=== PATIENT | female | born 1935 | race Caucasian/White ===

== ENCOUNTER 2021-04-17 10:46 | Emergency (ER) | payer MEDICARE, OTHER ==
[~2021-04-17] VITALS: Ht 167.6 cm; Wt 74.8 kg
[2021-04-17] MEDS ORDERED: HYDROcodone-ACET 10/325MG TAB PO ONE (12:30)
[2021-04-17 13:10] VITALS: BP 160/85
== END 2021-04-17 13:16 | disposition home or self-care (01) ==
LOC: ER 10:46
DX: S09.90XA Unspecified injury of head, initial encounter (principal); E11.9 Type 2 diabetes mellitus without complications; I10 Essential (primary) hypertension; E78.5 Hyperlipidemia, unspecified; Z90.49 Acquired absence of other specified parts of digestive tract; Z90.710 Acquired absence of both cervix and uterus; W01.198A Fall on same level from slipping, tripping and stumbling with subsequent striking against other object, initial encounter; Y93.89 Activity, other specified; Y92.89 Other specified places as the place of occurrence of the external cause; Y99.8 Other external cause status
CPT/HCPCS: 70450; 72125

== ENCOUNTER 2021-07-28 16:55 | Inpatient (IN) | payer MEDICARE, OTHER ==
[~2021-07-28] VITALS: Ht 167.6 cm; Wt 84.5 kg
[2021-07-28] MEDS ORDERED: DEXTROSE (50%) 50ML SYRG IV ONE (17:00)
[2021-07-28] MEDS ORDERED: cloNIDine HCL 0.1 MG TAB PO ONE (17:00)
[2021-07-28 17:55] LABS: Basophils # (auto) 0 10 ^3/uL (0-0.2); Basophils % (auto) 0.3 % (0.0-2.0); Eosinophils # (auto) 0 10 ^3/uL (0-0.8); Eosinophils % (auto) 0.2 % (0.0-7.0); Hemoglobin 11.7 g/dL (12.2-16.2); Lymphocytes # (auto) 0.8 10 ^3/uL (0.4-5.4); Lymphocytes % (auto) 15.4 % (10.0-50.0); Mean Corpuscular Hgb Conc. 33.4 g/dL (32.0-36.0); Mean Corpuscular Volume 98.7 fL (80.0-100.0); Monocytes # (auto) 0.2 10 ^3/uL (0-1.3); Monocytes % (auto) 3.9 % (0.0-12.0); Neutrophils % (auto) 80.2 % (37.0-80.0); Nucleated Red Blood Cells % 0.1 %; Red Blood Cells 3.55 10^6/uL (4.0-5.20); Red Cell Distribution Width 13.3 % (11.8-14.3)
[2021-07-28 18:11] LABS: Albumin 3.1 g/dL (3.4-5.0); Calcium 8.7 mg/dL (8.5-10.1); Potassium 4.2 mmol/L (3.5-5.1)
[2021-07-28 18:17] LABS: BUN/Creatinine Ratio 29.6; Bilirubin, Total 0.2 mg/dL (0.2-1.0); Total Protein 7.2 g/dL (6.4-8.2)
[2021-07-28] MEDS ORDERED: cefTRIAXone 1GM/50ML D5W 50 ML IV ONE (19:15)
[2021-07-28] MEDS ORDERED: AZITHROMYCIN 500MG/ 250ML 250 ML IV ONE (19:15)
[2021-07-28 20:52] LABS: Urine Bacteria NONE SEEN /hpf (None Seen); Urine Blood 1+ /uL (Negative); Urine Hyaline Cast FEW /lpf (0 - 2); Urine Specific Gravity 1.011 (1.001-1.035); Urine WBC 1 /hpf (0 - 5)
[2021-07-28] MEDS ORDERED: DexAMETHasone SOD PHOS 10MG/1ML VIAL INJ IV ONE (21:00)
[2021-07-28] MEDS ORDERED: ENOXAPARIN SOD 100 MG/1 ML SYRINGE SC ONE (21:15)
[2021-07-28] MEDS ORDERED: ALBUTEROL SULF 2.5 MG/0.5ML(0.5%) NEB SOLN NEB PRN (21:30)
[2021-07-28] MEDS ORDERED: NITROGLYCERIN 0.4 MG SL TAB SL PRN (21:30)
[2021-07-28] MEDS ORDERED: ACETAMINOPHEN 325 MG TAB PO PRN (21:30)
[2021-07-28] MEDS ORDERED: cloNIDine HCL 0.1 MG TAB PO PRN (21:30)
[2021-07-28] MEDS ORDERED: TEMAZEPAM 15 MG CAP PO PRN (21:30)
[2021-07-28] MEDS ORDERED: ONDANSETRON HCL 4 MG/2 ML VIAL IV PRN (21:30)
[2021-07-28] MEDS ORDERED: MORPHINE SULFATE INJECTION 2 MG/ML SYRG IV PRN (21:30)
[2021-07-28] MEDS ORDERED: DEXTROSE (50%) 50ML SYRG IV PRN (21:30)
[2021-07-28 21:49] LABS: INR 1.01 (0.9-1.15); Partial Thromboplastin Time 28.5 sec (23.6-33.0)
[2021-07-28] MEDS ORDERED: DONEPEZIL HYDROCHLORIDE 5 MG TAB PO SCH (22:00)
[2021-07-28] MEDS ORDERED: ATORVASTATIN 20 MG TAB PO SCH (22:00)
[2021-07-28] MEDS ORDERED: ALBUTEROL SULF HFA 90MCG INH 200DOSE IN PRN (22:15)
[2021-07-28] MEDS: ACCU-CHEK COMFORT CURVE STRIP VI SCH (22:32)
[2021-07-28] MEDS: InsuLIN REG 1unit/0.01ml Soln (100units/ml) SC SCH (22:35)
[2021-07-28 23:06] LABS: CRP High Sensitivity 9.59 mg/dL (< 0.3)
[2021-07-29 00:04] LABS: Lactic Acid w/Reflex 3.6 mmol/L (0.4-2.0)
[2021-07-29 04:50] LABS: Basophils # (auto) 0.1 10 ^3/uL (0-0.2); Basophils % (auto) 0.4 % (0.0-2.0); Eosinophils # (auto) 0 10 ^3/uL (0-0.8); Hematocrit 33.8 % (36.0-46.0); Lymphocytes # (auto) 0.5 10 ^3/uL (0.4-5.4); Lymphocytes % (auto) 4.2 % (10.0-50.0); Mean Corpuscular Hemoglobin 33.1 pg (28.0-32.0); Mean Corpuscular Hgb Conc. 32.7 g/dL (32.0-36.0); Mean Corpuscular Volume 101.3 fL (80.0-100.0); Monocytes # (auto) 0.1 10 ^3/uL (0-1.3); Monocytes % (auto) 1.1 % (0.0-12.0); Neutrophils # (auto) 11.3 10 ^3/uL (1.6-8.6); Neutrophils % (auto) 94.3 % (37.0-80.0); Red Blood Cells 3.33 10^6/uL (4.0-5.20); Red Cell Distribution Width 13.8 % (11.8-14.3)
[2021-07-29 05:28] LABS: Albumin 2.4 g/dL (3.4-5.0); Calcium 8.2 mg/dL (8.5-10.1); Potassium 4.5 mmol/L (3.5-5.1)
[2021-07-29 05:31] LABS: BUN/Creatinine Ratio 27.7; Bilirubin, Total 0.3 mg/dL (0.2-1.0); Total Protein 6.4 g/dL (6.4-8.2)
[2021-07-29] MEDS: ACCU-CHEK COMFORT CURVE STRIP VI SCH ×4 (07:10→22:24)
[2021-07-29] MEDS: InsuLIN REG 1unit/0.01ml Soln (100units/ml) SC SCH ×4 (07:26→22:44)
[2021-07-29] MEDS ORDERED: FUROSEMIDE 20 MG/2 ML VIAL IV ONE (07:45)
[2021-07-29] MEDS: cefTRIAXone 1GM/50ML D5W 50 ML IV SCH (09:05)
[2021-07-29] MEDS ORDERED: ZINC SULFATE 220mg CAP or TAB PO SCH (10:00)
[2021-07-29] MEDS ORDERED: ENOXAPARIN SOD 30 MG/0.3 ML SYRINGE SC SCH (10:00)
[2021-07-29] MEDS ORDERED: HCTZ 25 MG TAB PO SCH (10:00)
[2021-07-29] MEDS ORDERED: ATENOLOL 50 MG TAB PO SCH (10:00)
[2021-07-29] MEDS ORDERED: FUROSEMIDE 40 MG TAB PO SCH (10:00)
[2021-07-29] MEDS ORDERED: ASPirin 81 mg TAB PO SCH (10:00)
[2021-07-29] MEDS ORDERED: CHOLECALCIFEROL (VITD3) 2,000 UNIT CAP/TAB PO SCH (10:00)
[2021-07-29] MEDS ORDERED: ASCORBIC ACID 1,000 MG TAB PO SCH (10:00)
[2021-07-29] MEDS ORDERED: LISINOPRIL 5 MG TAB PO SCH (10:00)
[2021-07-29] MEDS ORDERED: PANTOPRAZOLE 40 MG TAB PO SCH (10:00)
[2021-07-29] MEDS ORDERED: MIDAZOLAM HCL 5 MG/ML-1ML VIAL ONE (10:38)
[2021-07-29] MEDS ORDERED: SUCCINYLCHOLINE CHLORIDE 20 MG/ML 10ML VIAL IV ONE (10:38)
[2021-07-29] MEDS ORDERED: MIDAZOLAM DRIP 50 mg/50mL 50 ML IV ONE (10:38)
[2021-07-29] MEDS ORDERED: NOREPINEPHRINE 8 MG/250ML KIT 250 ML IV ONE (10:38)
[2021-07-29] MEDS ORDERED: MIDAZOLAM HCL 5 MG/ML-1ML VIAL IV ONE (10:45)
[2021-07-29] MEDS ORDERED: ETOMIDATE (2MG/ML) 20ML VIAL IV ONE (10:53)
[2021-07-29] MEDS ORDERED: MIDAZOLAM DRIP 50 mg/50mL 50 ML IV SCH (10:58)
[2021-07-29] MEDS ORDERED: fentaNYL CITRATE 100 MCG/2 ML VL IV ONE (11:02)
[2021-07-29] MEDS: MIDAZOLAM DRIP 50 mg/50mL 50 ML IV SCH ×3 (11:09→17:45)
[2021-07-29 11:14] VITALS: BP 85/42
[2021-07-29] MEDS: fentaNYL Drip 2500mCg/250mlNS 250 ML IV SCH (11:15)
[2021-07-29] MEDS ORDERED: ACETAMINOPHEN 650 mg PER 20.3 mL UD GT PRN (11:30)
[2021-07-29] MEDS ORDERED: ACETAMINOPHEN 650 mg PER 20.3 mL UD NG PRN (11:30)
[2021-07-29] MEDS: DexAMETHasone SOD PHOS 10MG/1ML VIAL INJ IV SCH (11:31)
[2021-07-29] MEDS ORDERED: ATORVASTATIN 20 MG TAB NG SCH (11:31)
[2021-07-29] MEDS: AZITHROMYCIN 500MG/ 250ML 250 ML IV SCH (11:31)
[2021-07-29] MEDS: ATENOLOL 50 MG TAB NG SCH (11:33)
[2021-07-29] MEDS ORDERED: DONEPEZIL HYDROCHLORIDE 5 MG TAB NG SCH (11:33)
[2021-07-29] MEDS: NOREPINEPHRINE 8 MG/250ML KIT 250 ML IV SCH (11:35)
[2021-07-29] MEDS: LISINOPRIL 5 MG TAB NG SCH (11:36)
[2021-07-29] MEDS ORDERED: cloNIDine HCL 0.1 MG TAB NG PRN (11:45)
[2021-07-29] MEDS ORDERED: TEMAZEPAM 15 MG CAP NG PRN (11:45)
[2021-07-29] MEDS: ASCORBIC ACID 1,000 MG TAB NG SCH (13:10)
[2021-07-29] MEDS: FUROSEMIDE 40 MG TAB NG SCH (13:10)
[2021-07-29] MEDS: OMEPRAZOLE 20MG/10ML ORAL SUSP NG SCH (13:10)
[2021-07-29] MEDS: CHOLECALCIFEROL (VITD3) 1,000UNIT=25mCg TAB NG SCH (13:10)
[2021-07-29] MEDS: HCTZ 25 MG TAB NG SCH (13:10)
[2021-07-29] MEDS: ASPirin 81 mg TAB NG SCH (13:10)
[2021-07-29] MEDS: ZINC SULFATE 220mg CAP or TAB NG SCH (13:10)
[2021-07-29 14:26] VITALS: BP 100/59
[2021-07-29 17:45] VITALS: BP 106/57
[2021-07-29 21:34] VITALS: BP 105/59
[2021-07-29] MEDS: DONEPEZIL HYDROCHLORIDE 5 MG TAB NG SCH (22:45)
[2021-07-29] MEDS: ATORVASTATIN 20 MG TAB NG SCH (22:45)
[2021-07-30 01:11] VITALS: BP 122/59
[2021-07-30 06:00] VITALS: BP 130/72
[2021-07-30] MEDS ORDERED: ALBUTEROL SULF 2.5 MG/0.5ML(0.5%) NEB SOLN NEB PRN (06:00)
[2021-07-30 06:56] LABS: Basophils # (auto) 0 10 ^3/uL (0-0.2); Basophils % (auto) 0.2 % (0.0-2.0); Eosinophils # (auto) 0 10 ^3/uL (0-0.8); Hematocrit 35.3 % (36.0-46.0); Lymphocytes # (auto) 1.2 10 ^3/uL (0.4-5.4); Lymphocytes % (auto) 8.6 % (10.0-50.0); Monocytes # (auto) 0.9 10 ^3/uL (0-1.3); Monocytes % (auto) 6.1 % (0.0-12.0); Neutrophils # (auto) 12.3 10 ^3/uL (1.6-8.6); Neutrophils % (auto) 85.1 % (37.0-80.0); Red Blood Cells 3.63 10^6/uL (4.0-5.20); Red Cell Distribution Width 13.3 % (11.8-14.3); White Blood Cell 14.4 10^3/uL (4.4-10.8)
[2021-07-30 06:59] LABS: Potassium 5.4 mmol/L (3.5-5.1)
[2021-07-30 07:11] LABS: Albumin 2.1 g/dL (3.4-5.0); BUN/Creatinine Ratio 30.6; Bilirubin, Total 0.2 mg/dL (0.2-1.0); Calcium 8.6 mg/dL (8.5-10.1); Total Protein 6.4 g/dL (6.4-8.2)
[2021-07-30] MEDS: ACCU-CHEK COMFORT CURVE STRIP VI SCH ×4 (07:48→22:39)
[2021-07-30] MEDS: InsuLIN REG 1unit/0.01ml Soln (100units/ml) SC SCH ×4 (07:48→22:41)
[2021-07-30] MEDS: cefTRIAXone 1GM/50ML D5W 50 ML IV SCH (09:11)
[2021-07-30] MEDS: LISINOPRIL 5 MG TAB NG SCH (10:00)
[2021-07-30] MEDS: ATENOLOL 50 MG TAB NG SCH (10:00)
[2021-07-30 10:10] VITALS: BP 106/65
[2021-07-30] MEDS: ZINC SULFATE 220mg CAP or TAB NG SCH (10:28)
[2021-07-30] MEDS: AZITHROMYCIN 500MG/ 250ML 250 ML IV SCH (10:28)
[2021-07-30] MEDS: ASPirin 81 mg TAB NG SCH (10:28)
[2021-07-30] MEDS: DexAMETHasone SOD PHOS 10MG/1ML VIAL INJ IV SCH (10:28)
[2021-07-30] MEDS: ASCORBIC ACID 1,000 MG TAB NG SCH (10:29)
[2021-07-30] MEDS: OMEPRAZOLE 20MG/10ML ORAL SUSP NG SCH (10:29)
[2021-07-30] MEDS: CHOLECALCIFEROL (VITD3) 1,000UNIT=25mCg TAB NG SCH (10:29)
[2021-07-30] MEDS: ENOXAPARIN SOD 40 MG/0.4 ML SYRINGE SC SCH (10:30)
[2021-07-30] MEDS: FUROSEMIDE 40 MG TAB NG SCH (10:31)
[2021-07-30] MEDS: HCTZ 25 MG TAB NG SCH (10:31)
[2021-07-30] MEDS: MIDAZOLAM DRIP 50 mg/50mL 50 ML IV SCH ×2 (11:00→16:45)
[2021-07-30] MEDS: fentaNYL Drip 2500mCg/250mlNS 250 ML IV SCH (11:10)
[2021-07-30] MEDS: NOREPINEPHRINE 8 MG/250ML KIT 250 ML IV SCH (11:15)
[2021-07-30] MEDS ORDERED: REMDESIVIR PER PHARMACY 0 ML IV SCH (12:15)
[2021-07-30 14:00] VITALS: BP 106/65
[2021-07-30 18:21] VITALS: BP 105/99
[2021-07-30 22:23] VITALS: BP 103/64
[2021-07-30] MEDS: DONEPEZIL HYDROCHLORIDE 5 MG TAB NG SCH (22:39)
[2021-07-30] MEDS: ATORVASTATIN 20 MG TAB NG SCH (22:39)
[2021-07-30] MEDS ORDERED: DEXTROSE (50%) 50ML SYRG IV ONE (23:00)
[2021-07-30] MEDS ORDERED: SODIUM BICARBONATE 8.4% INJ 50ML SYRINGE IV ONE (23:00)
[2021-07-30] MEDS ORDERED: InsuLIN REG 1unit/0.01ml Soln (100units/ml) IV ONE (23:00)
[2021-07-31] VITALS (8 sets, daily range): BP systolic 94–130; BP diastolic 21–68
[2021-07-31] MEDS: MIDAZOLAM DRIP 50 mg/50mL 50 ML IV SCH (03:33)
[2021-07-31] MEDS: fentaNYL Drip 2500mCg/250mlNS 250 ML IV SCH ×2 (05:45→12:48)
[2021-07-31] MEDS: NOREPINEPHRINE 8 MG/250ML KIT 250 ML IV SCH (05:46)
[2021-07-31] MEDS: ACCU-CHEK COMFORT CURVE STRIP VI SCH ×4 (06:30→23:15)
[2021-07-31] MEDS: InsuLIN REG 1unit/0.01ml Soln (100units/ml) SC SCH ×4 (06:30→23:15)
[2021-07-31 08:26] LABS: Basophils # (auto) 0 10 ^3/uL (0-0.2); Basophils % (auto) 0.1 % (0.0-2.0); Eosinophils # (auto) 0 10 ^3/uL (0-0.8); Eosinophils % (auto) 0.1 % (0.0-7.0); Hematocrit 36.4 % (36.0-46.0); Hemoglobin 12.1 g/dL (12.2-16.2); Lymphocytes # (auto) 0.7 10 ^3/uL (0.4-5.4); Lymphocytes % (auto) 6.4 % (10.0-50.0); Mean Corpuscular Hemoglobin 32.6 pg (28.0-32.0); Mean Corpuscular Hgb Conc. 33.2 g/dL (32.0-36.0); Mean Corpuscular Volume 98.2 fL (80.0-100.0); Monocytes # (auto) 0.8 10 ^3/uL (0-1.3); Monocytes % (auto) 6.5 % (0.0-12.0); Neutrophils % (auto) 86.9 % (37.0-80.0); Red Blood Cells 3.71 10^6/uL (4.0-5.20); Red Cell Distribution Width 13.4 % (11.8-14.3); White Blood Cell 11.5 10^3/uL (4.4-10.8)
[2021-07-31 09:00] LABS: Calcium 8.7 mg/dL (8.5-10.1); Potassium 4.5 mmol/L (3.5-5.1)
[2021-07-31 09:05] LABS: BUN/Creatinine Ratio 38.1; Bilirubin, Total 0.2 mg/dL (0.2-1.0)
[2021-07-31] MEDS: SODIUM BICARBONATE 50ML VIAL 150 ML in D5W 5% 1,000 ML IV SCH ×2 (09:09→20:50)
[2021-07-31] MEDS: DexAMETHasone SOD PHOS 10MG/1ML VIAL INJ IV SCH (09:10)
[2021-07-31] MEDS: ASPirin 81 mg TAB NG SCH (09:10)
[2021-07-31] MEDS: cefTRIAXone 1GM/50ML D5W 50 ML IV SCH (09:10)
[2021-07-31] MEDS: ZINC SULFATE 220mg CAP or TAB NG SCH (09:10)
[2021-07-31] MEDS: ENOXAPARIN SOD 40 MG/0.4 ML SYRINGE SC SCH (09:11)
[2021-07-31] MEDS: CHOLECALCIFEROL (VITD3) 1,000UNIT=25mCg TAB NG SCH (09:11)
[2021-07-31] MEDS: ASCORBIC ACID 1,000 MG TAB NG SCH (09:11)
[2021-07-31] MEDS: HCTZ 25 MG TAB NG SCH (10:00)
[2021-07-31] MEDS: ATENOLOL 50 MG TAB NG SCH (10:00)
[2021-07-31] MEDS: OMEPRAZOLE 20MG/10ML ORAL SUSP NG SCH (11:00)
[2021-07-31] MEDS: AZITHROMYCIN 500MG/ 250ML 250 ML IV SCH (11:00)
[2021-07-31] MEDS: DONEPEZIL HYDROCHLORIDE 5 MG TAB NG SCH (23:10)
[2021-07-31] MEDS: ATORVASTATIN 20 MG TAB NG SCH (23:11)
[2021-08-01] VITALS (7 sets, daily range): BP systolic 99–146; BP diastolic 32–71
[2021-08-01] MEDS: SODIUM BICARBONATE 50ML VIAL 150 ML in D5W 5% 1,000 ML IV SCH ×2 (05:55→08:19)
[2021-08-01] MEDS: InsuLIN REG 1unit/0.01ml Soln (100units/ml) SC SCH ×4 (05:56→20:23)
[2021-08-01] MEDS: ACCU-CHEK COMFORT CURVE STRIP VI SCH ×4 (05:59→20:17)
[2021-08-01 07:36] LABS: Basophils # (auto) 0 10 ^3/uL (0-0.2); Basophils % (auto) 0.2 % (0.0-2.0); Eosinophils # (auto) 0 10 ^3/uL (0-0.8); Hematocrit 32.1 % (36.0-46.0); Hemoglobin 10.8 g/dL (12.2-16.2); Lymphocytes # (auto) 0.5 10 ^3/uL (0.4-5.4); Lymphocytes % (auto) 6.4 % (10.0-50.0); Mean Corpuscular Hemoglobin 32.7 pg (28.0-32.0); Mean Corpuscular Hgb Conc. 33.5 g/dL (32.0-36.0); Mean Corpuscular Volume 97.4 fL (80.0-100.0); Monocytes # (auto) 0.6 10 ^3/uL (0-1.3); Monocytes % (auto) 7.7 % (0.0-12.0); Neutrophils # (auto) 6.3 10 ^3/uL (1.6-8.6); Neutrophils % (auto) 85.7 % (37.0-80.0); Nucleated Red Blood Cells % 0.1 %; Red Blood Cells 3.29 10^6/uL (4.0-5.20); Red Cell Distribution Width 13.4 % (11.8-14.3); White Blood Cell 7.3 10^3/uL (4.4-10.8)
[2021-08-01 07:44] LABS: Potassium 3.9 mmol/L (3.5-5.1)
[2021-08-01 07:50] LABS: Albumin 1.8 g/dL (3.4-5.0); BUN/Creatinine Ratio 42.8; Bilirubin, Total 0.2 mg/dL (0.2-1.0); Calcium 8.6 mg/dL (8.5-10.1); Total Protein 5.4 g/dL (6.4-8.2)
[2021-08-01] MEDS: cefTRIAXone 1GM/50ML D5W 50 ML IV SCH (09:25)
[2021-08-01] MEDS: HCTZ 25 MG TAB NG SCH (10:00)
[2021-08-01] MEDS: ATENOLOL 50 MG TAB NG SCH (10:00)
[2021-08-01] MEDS: DexAMETHasone SOD PHOS 10MG/1ML VIAL INJ IV SCH (10:19)
[2021-08-01] MEDS: ASPirin 81 mg TAB NG SCH (10:19)
[2021-08-01] MEDS: AZITHROMYCIN 500MG/ 250ML 250 ML IV SCH (10:19)
[2021-08-01] MEDS: ZINC SULFATE 220mg CAP or TAB NG SCH (10:19)
[2021-08-01] MEDS: ASCORBIC ACID 1,000 MG TAB NG SCH (10:20)
[2021-08-01] MEDS: CHOLECALCIFEROL (VITD3) 1,000UNIT=25mCg TAB NG SCH (10:20)
[2021-08-01] MEDS: ENOXAPARIN SOD 40 MG/0.4 ML SYRINGE SC SCH (10:21)
[2021-08-01] MEDS: OMEPRAZOLE 20MG/10ML ORAL SUSP NG SCH (10:25)
[2021-08-01] MEDS: MIDAZOLAM DRIP 50 mg/50mL 50 ML IV SCH (10:45)
[2021-08-01] MEDS: NOREPINEPHRINE 8 MG/250ML KIT 250 ML IV SCH (11:15)
[2021-08-01] MEDS ORDERED: DEXTROSE (50%) 50ML SYRG IV PRN (12:15)
[2021-08-01 12:27] LABS: INR 1.21 (0.9-1.15)
[2021-08-01 12:38] LABS: Hematocrit 31.2 % (36.0-46.0); Hemoglobin 10.4 g/dL (12.2-16.2)
[2021-08-01] MEDS ORDERED: HEPARIN SODIUM (PORCINE) 5000 UNITS/ML 1ML VIAL IV ONE (14:15)
[2021-08-01] MEDS: SODIUM CHLORIDE 0.9% 1,000 ML IV SCH (14:45)
[2021-08-01] MEDS ORDERED: HEPARIN SODIUM (PORCINE) 5000 UNITS/ML 1ML VIAL ONE (15:16)
[2021-08-01] MEDS: HEPARIN DRIP/D5W 100UNITS/ML 250 ML IV SCH (15:29)
[2021-08-01 17:31] LABS: Hematocrit 32.2 % (36.0-46.0); Hemoglobin 10.8 g/dL (12.2-16.2)
[2021-08-01] MEDS: ATORVASTATIN 20 MG TAB NG SCH (21:45)
[2021-08-01] MEDS: DONEPEZIL HYDROCHLORIDE 5 MG TAB NG SCH (21:45)
[2021-08-01 23:16] LABS: INR 1.27 (0.9-1.15); Partial Thromboplastin Time 51.7 sec (23.6-33.0)
[2021-08-01 23:22] LABS: Hematocrit 31.9 % (36.0-46.0)
[2021-08-02] VITALS (19 sets, daily range): BP systolic 91–131; BP diastolic 48–89
[2021-08-02] MEDS: ACCU-CHEK COMFORT CURVE STRIP VI SCH ×6 (00:14→20:00)
[2021-08-02] MEDS: InsuLIN REG 1unit/0.01ml Soln (100units/ml) SC SCH ×6 (00:20→21:34)
[2021-08-02] MEDS: SODIUM CHLORIDE 0.9% 1,000 ML IV SCH ×2 (04:52→17:25)
[2021-08-02 06:25] LABS: Basophils # (auto) 0 10 ^3/uL (0-0.2); Basophils % (auto) 0.3 % (0.0-2.0); Eosinophils # (auto) 0 10 ^3/uL (0-0.8); Eosinophils % (auto) 0.1 % (0.0-7.0); Hematocrit 31.5 % (36.0-46.0); Hemoglobin 10.7 g/dL (12.2-16.2); Lymphocytes # (auto) 0.5 10 ^3/uL (0.4-5.4); Mean Corpuscular Hemoglobin 32.5 pg (28.0-32.0); Mean Corpuscular Volume 95.7 fL (80.0-100.0); Monocytes # (auto) 0.8 10 ^3/uL (0-1.3); Monocytes % (auto) 8.9 % (0.0-12.0); Neutrophils # (auto) 7.9 10 ^3/uL (1.6-8.6); Neutrophils % (auto) 85.7 % (37.0-80.0); Red Blood Cells 3.29 10^6/uL (4.0-5.20); Red Cell Distribution Width 13.3 % (11.8-14.3); White Blood Cell 9.2 10^3/uL (4.4-10.8)
[2021-08-02 06:34] LABS: Potassium 3.8 mmol/L (3.5-5.1)
[2021-08-02 06:43] LABS: Albumin 1.7 g/dL (3.4-5.0); BUN/Creatinine Ratio 48.8; Calcium 8.7 mg/dL (8.5-10.1)
[2021-08-02 06:46] LABS: Bilirubin, Total 0.2 mg/dL (0.2-1.0); Total Protein 5.1 g/dL (6.4-8.2)
[2021-08-02 07:51] LABS: INR 1.35 (0.9-1.15); Partial Thromboplastin Time 43.7 sec (23.6-33.0)
[2021-08-02] MEDS: cefTRIAXone 1GM/50ML D5W 50 ML IV SCH (09:38)
[2021-08-02] MEDS: DexAMETHasone SOD PHOS 10MG/1ML VIAL INJ IV SCH (09:47)
[2021-08-02] MEDS: ASPirin 81 mg TAB NG SCH (09:49)
[2021-08-02] MEDS: ZINC SULFATE 220mg CAP or TAB NG SCH (09:50)
[2021-08-02] MEDS: ASCORBIC ACID 1,000 MG TAB NG SCH (09:50)
[2021-08-02] MEDS: CHOLECALCIFEROL (VITD3) 1,000UNIT=25mCg TAB NG SCH (09:50)
[2021-08-02] MEDS: OMEPRAZOLE 20MG/10ML ORAL SUSP NG SCH (10:00)
[2021-08-02] MEDS: AZITHROMYCIN 500MG/ 250ML 250 ML IV SCH (10:24)
[2021-08-02] MEDS: MIDAZOLAM DRIP 50 mg/50mL 50 ML IV SCH (10:45)
[2021-08-02] MEDS: fentaNYL Drip 2500mCg/250mlNS 250 ML IV SCH (11:54)
[2021-08-02] MEDS: NOREPINEPHRINE 8 MG/250ML KIT 250 ML IV SCH (11:54)
[2021-08-02] MEDS: HEPARIN DRIP/D5W 100UNITS/ML 250 ML IV SCH (14:15)
[2021-08-02 14:26] LABS: INR 1.29 (0.9-1.15)
[2021-08-02 14:32] LABS: Partial Thromboplastin Time 73.7 sec (23.6-33.0)
[2021-08-02 20:46] LABS: INR 1.3 (0.9-1.15); Partial Thromboplastin Time 69.2 sec (23.6-33.0)
[2021-08-02] MEDS: ATORVASTATIN 20 MG TAB NG SCH (21:35)
[2021-08-02] MEDS: DONEPEZIL HYDROCHLORIDE 5 MG TAB NG SCH (21:40)
[2021-08-03] VITALS (20 sets, daily range): BP systolic 98–140; BP diastolic 48–82
[2021-08-03] MEDS: InsuLIN REG 1unit/0.01ml Soln (100units/ml) SC SCH ×6 (01:09→19:15)
[2021-08-03] MEDS: MIDAZOLAM DRIP 50 mg/50mL 50 ML IV SCH (01:13)
[2021-08-03] MEDS: fentaNYL Drip 2500mCg/250mlNS 250 ML IV SCH (01:20)
[2021-08-03 02:36] LABS: INR 1.32 (0.9-1.15); Partial Thromboplastin Time 66.2 sec (23.6-33.0)
[2021-08-03] MEDS: ACCU-CHEK COMFORT CURVE STRIP VI SCH ×6 (04:14→19:00)
[2021-08-03] MEDS ORDERED: InsuLIN REG 1unit/0.01ml Soln (100units/ml) ONE (04:32)
[2021-08-03] MEDS: SODIUM CHLORIDE 0.9% 1,000 ML IV SCH ×2 (05:50→18:00)
[2021-08-03 06:54] LABS: Basophils # (auto) 0 10 ^3/uL (0-0.2); Basophils % (auto) 0.4 % (0.0-2.0); Eosinophils # (auto) 0 10 ^3/uL (0-0.8); Hematocrit 31.3 % (36.0-46.0); Hemoglobin 10.4 g/dL (12.2-16.2); Lymphocytes # (auto) 0.3 10 ^3/uL (0.4-5.4); Lymphocytes % (auto) 4.6 % (10.0-50.0); Mean Corpuscular Hemoglobin 32.8 pg (28.0-32.0); Mean Corpuscular Hgb Conc. 33.2 g/dL (32.0-36.0); Mean Corpuscular Volume 98.7 fL (80.0-100.0); Monocytes # (auto) 0.6 10 ^3/uL (0-1.3); Neutrophils # (auto) 6.5 10 ^3/uL (1.6-8.6); Nucleated Red Blood Cells % 0.1 %; Red Blood Cells 3.17 10^6/uL (4.0-5.20); White Blood Cell 7.5 10^3/uL (4.4-10.8)
[2021-08-03 07:00] LABS: BUN/Creatinine Ratio 53.3; Calcium 8.2 mg/dL (8.5-10.1); Potassium 3.8 mmol/L (3.5-5.1)
[2021-08-03 09:52] LABS: INR 1.34 (0.9-1.15)
[2021-08-03 09:57] LABS: Partial Thromboplastin Time 78.3 sec (23.6-33.0)
[2021-08-03] MEDS: cefTRIAXone 1GM/50ML D5W 50 ML IV SCH (10:35)
[2021-08-03] MEDS: DexAMETHasone SOD PHOS 10MG/1ML VIAL INJ IV SCH (10:45)
[2021-08-03] MEDS: ASCORBIC ACID 1,000 MG TAB NG SCH (10:45)
[2021-08-03] MEDS: CHOLECALCIFEROL (VITD3) 1,000UNIT=25mCg TAB NG SCH (10:45)
[2021-08-03] MEDS: ZINC SULFATE 220mg CAP or TAB NG SCH (10:45)
[2021-08-03] MEDS: AZITHROMYCIN 500MG/ 250ML 250 ML IV SCH (10:50)
[2021-08-03] MEDS: OMEPRAZOLE 20MG/10ML ORAL SUSP NG SCH (11:00)
[2021-08-03] MEDS: NOREPINEPHRINE 8 MG/250ML KIT 250 ML IV SCH (11:15)
[2021-08-03] MEDS: DOPamine 1600MCG/ML D5W 250 ML IV SCH (14:10)
[2021-08-03 15:09] LABS: INR 1.29 (0.9-1.15)
[2021-08-03 15:15] LABS: Partial Thromboplastin Time 71.7 sec (23.6-33.0)
[2021-08-03] MEDS ORDERED: DEXTROSE (50%) 50ML SYRG IV PRN (16:30)
[2021-08-03 21:02] LABS: INR 1.27 (0.9-1.15)
[2021-08-03] MEDS: DONEPEZIL HYDROCHLORIDE 5 MG TAB NG SCH (22:07)
[2021-08-03] MEDS: ATORVASTATIN 20 MG TAB NG SCH (22:08)
[2021-08-03] MEDS ORDERED: ATOR20TA50 PO (22:21)
[2021-08-03] MEDS ORDERED: WARF1TAB36 PO (22:21)
[2021-08-03] MEDS ORDERED: ATEN50TA PO (22:21)
[2021-08-03] MEDS ORDERED: ALBU108A5 INH (22:21)
[2021-08-03] MEDS ORDERED: DONE1TAB88 PO (22:21)
[2021-08-03] MEDS ORDERED: POTA-264 PO (22:21)
[2021-08-03] MEDS ORDERED: FURO40TA4 PO (22:21)
[2021-08-03] MEDS ORDERED: LISI-275 PO (22:21)
[2021-08-03] MEDS ORDERED: GLIP10TA9 PO (22:21)
[2021-08-03] MEDS ORDERED: ATEN50TA80 PO (22:21)
[2021-08-03] MEDS ORDERED: HYDR25TA5 PO (22:21)
[2021-08-04] MEDS: ACCU-CHEK COMFORT CURVE STRIP VI SCH ×4 (00:02→18:10)
[2021-08-04] MEDS: InsuLIN REG 1unit/0.01ml Soln (100units/ml) SC SCH ×4 (00:04→18:10)
[2021-08-04] MEDS: HEPARIN DRIP/D5W 100UNITS/ML 250 ML IV SCH ×2 (00:31→14:15)
[2021-08-04 02:01] VITALS: BP 132/65
[2021-08-04 03:22] LABS: INR 1.24 (0.9-1.15); Partial Thromboplastin Time 55.4 sec (23.6-33.0)
[2021-08-04 06:50] VITALS: BP 153/75
[2021-08-04 07:03] LABS: Basophils # (auto) 0 10 ^3/uL (0-0.2); Basophils % (auto) 0.1 % (0.0-2.0); Eosinophils # (auto) 0 10 ^3/uL (0-0.8); Hematocrit 33.7 % (36.0-46.0); Hemoglobin 11.5 g/dL (12.2-16.2); Lymphocytes # (auto) 0.4 10 ^3/uL (0.4-5.4); Lymphocytes % (auto) 4.8 % (10.0-50.0); Mean Corpuscular Hemoglobin 33.6 pg (28.0-32.0); Mean Corpuscular Hgb Conc. 34.3 g/dL (32.0-36.0); Mean Corpuscular Volume 97.9 fL (80.0-100.0); Monocytes # (auto) 0.6 10 ^3/uL (0-1.3); Monocytes % (auto) 7.2 % (0.0-12.0); Neutrophils # (auto) 7.7 10 ^3/uL (1.6-8.6); Neutrophils % (auto) 87.9 % (37.0-80.0); Nucleated Red Blood Cells % 0.1 %; Red Blood Cells 3.44 10^6/uL (4.0-5.20); Red Cell Distribution Width 13.5 % (11.8-14.3); White Blood Cell 8.8 10^3/uL (4.4-10.8)
[2021-08-04 07:33] LABS: BUN/Creatinine Ratio 55.7; Bilirubin, Total 0.3 mg/dL (0.2-1.0); Calcium 8.6 mg/dL (8.5-10.1); Total Protein 5.7 g/dL (6.4-8.2)
[2021-08-04] MEDS: fentaNYL Drip 2500mCg/250mlNS 250 ML IV SCH (08:40)
[2021-08-04] MEDS: cefTRIAXone 1GM/50ML D5W 50 ML IV SCH (09:15)
[2021-08-04] MEDS: DexAMETHasone SOD PHOS 10MG/1ML VIAL INJ IV SCH (09:29)
[2021-08-04] MEDS: ASPirin 81 mg TAB NG SCH (09:30)
[2021-08-04] MEDS: ZINC SULFATE 220mg CAP or TAB NG SCH (09:31)
[2021-08-04] MEDS: OMEPRAZOLE 20MG/10ML ORAL SUSP NG SCH (09:31)
[2021-08-04] MEDS: ASCORBIC ACID 1,000 MG TAB NG SCH (09:32)
[2021-08-04] MEDS: CHOLECALCIFEROL (VITD3) 1,000UNIT=25mCg TAB NG SCH (09:32)
[2021-08-04 09:44] VITALS: BP 144/76
[2021-08-04] MEDS: AZITHROMYCIN 500MG/ 250ML 250 ML IV SCH (09:49)
[2021-08-04] MEDS: MIDAZOLAM DRIP 50 mg/50mL 50 ML IV SCH (09:50)
[2021-08-04] MEDS: NOREPINEPHRINE 8 MG/250ML KIT 250 ML IV SCH (09:50)
[2021-08-04] MEDS: DOPamine 1600MCG/ML D5W 250 ML IV SCH (12:15)
[2021-08-04] MEDS: SODIUM CHLORIDE 0.9% 1,000 ML IV SCH (13:37)
[2021-08-04] MEDS: ATORVASTATIN 20 MG TAB NG SCH (22:00)
[2021-08-04] MEDS: DONEPEZIL HYDROCHLORIDE 5 MG TAB NG SCH (22:00)
[2021-08-05] MEDS: InsuLIN REG 1unit/0.01ml Soln (100units/ml) SC SCH ×4 (01:09→18:00)
[2021-08-05] MEDS: ACCU-CHEK COMFORT CURVE STRIP VI SCH ×4 (07:15→18:30)
[2021-08-05 07:59] LABS: Basophils # (auto) 0 10 ^3/uL (0-0.2); Basophils % (auto) 0.2 % (0.0-2.0); Eosinophils # (auto) 0 10 ^3/uL (0-0.8); Eosinophils % (auto) 0.1 % (0.0-7.0); Hematocrit 32.7 % (36.0-46.0); Hemoglobin 11.1 g/dL (12.2-16.2); Lymphocytes # (auto) 0.5 10 ^3/uL (0.4-5.4); Lymphocytes % (auto) 4.9 % (10.0-50.0); Mean Corpuscular Volume 97.2 fL (80.0-100.0); Monocytes # (auto) 0.5 10 ^3/uL (0-1.3); Monocytes % (auto) 5.6 % (0.0-12.0); Neutrophils # (auto) 8.4 10 ^3/uL (1.6-8.6); Neutrophils % (auto) 89.2 % (37.0-80.0); Red Blood Cells 3.37 10^6/uL (4.0-5.20); Red Cell Distribution Width 13.2 % (11.8-14.3); White Blood Cell 9.4 10^3/uL (4.4-10.8)
[2021-08-05 08:28] LABS: INR 1.32 (0.9-1.15); Partial Thromboplastin Time 43.6 sec (23.6-33.0)
[2021-08-05] MEDS: SODIUM CHLORIDE 0.9% 1,000 ML IV SCH ×2 (08:35→08:36)
[2021-08-05 08:38] LABS: Potassium 3.7 mmol/L (3.5-5.1)
[2021-08-05 08:44] LABS: Albumin 1.9 g/dL (3.4-5.0); BUN/Creatinine Ratio 46.6; Bilirubin, Total 0.4 mg/dL (0.2-1.0); Calcium 8.8 mg/dL (8.5-10.1); Total Protein 5.6 g/dL (6.4-8.2)
[2021-08-05] MEDS: cefTRIAXone 1GM/50ML D5W 50 ML IV SCH ×2 (08:56→10:55)
[2021-08-05] MEDS ORDERED: HEPARIN DRIP/D5W 100UNITS/ML 250 ML IV SCH (09:15)
[2021-08-05] MEDS: OMEPRAZOLE 20MG/10ML ORAL SUSP NG SCH (10:00)
[2021-08-05] MEDS: ASPirin 81 mg TAB NG SCH (10:25)
[2021-08-05] MEDS: AZITHROMYCIN 500MG/ 250ML 250 ML IV SCH (10:25)
[2021-08-05] MEDS: CHOLECALCIFEROL (VITD3) 1,000UNIT=25mCg TAB NG SCH (10:25)
[2021-08-05] MEDS: DexAMETHasone SOD PHOS 10MG/1ML VIAL INJ IV SCH (10:25)
[2021-08-05] MEDS: ASCORBIC ACID 1,000 MG TAB NG SCH (10:25)
[2021-08-05] MEDS: ZINC SULFATE 220mg CAP or TAB NG SCH (10:26)
[2021-08-05] MEDS: DOPamine 1600MCG/ML D5W 250 ML IV SCH (12:15)
[2021-08-05] MEDS: DONEPEZIL HYDROCHLORIDE 5 MG TAB NG SCH (21:48)
[2021-08-05] MEDS: ATORVASTATIN 20 MG TAB NG SCH (21:49)
[2021-08-05] MEDS ORDERED: ENOXAPARIN SOD 100 MG/1 ML SYRINGE SC SCH (22:00)
[2021-08-05 23:00] VITALS: BP 149/78
[2021-08-05] MEDS ORDERED: ASPI-543 PO (23:41)
[2021-08-06] MEDS: ACCU-CHEK COMFORT CURVE STRIP VI SCH ×4 (00:42→18:09)
[2021-08-06] MEDS: InsuLIN REG 1unit/0.01ml Soln (100units/ml) SC SCH ×4 (00:46→18:10)
[2021-08-06 05:00] VITALS: BP 143/74
[2021-08-06 09:00] VITALS: BP 177/86
[2021-08-06] MEDS: AZITHROMYCIN 500MG/ 250ML 250 ML IV SCH (09:50)
[2021-08-06] MEDS: ZINC SULFATE 220mg CAP or TAB NG SCH (09:50)
[2021-08-06] MEDS: DexAMETHasone SOD PHOS 10MG/1ML VIAL INJ IV SCH (09:50)
[2021-08-06] MEDS: ASPirin 81 mg TAB NG SCH (09:50)
[2021-08-06] MEDS: OMEPRAZOLE 20MG/10ML ORAL SUSP NG SCH (09:50)
[2021-08-06] MEDS: ASCORBIC ACID 1,000 MG TAB NG SCH (09:51)
[2021-08-06] MEDS: CHOLECALCIFEROL (VITD3) 1,000UNIT=25mCg TAB NG SCH (09:51)
[2021-08-06] MEDS: METOPROLOL TARTRATE 25 MG TAB PO SCH ×2 (09:51→21:26)
[2021-08-06] MEDS: ENOXAPARIN SOD 40 MG/0.4 ML SYRINGE SC SCH (09:51)
[2021-08-06] MEDS ORDERED: CLOPIDOGREL BISULFATE 75 MG TAB PO SCH (10:00)
[2021-08-06] MEDS: DOXYCYCLINE 100MG/250ML 250 ML IV SCH (12:52)
[2021-08-06 13:00] VITALS: BP 172/90
[2021-08-06] MEDS: ACETYLCYSTEINE 10 %(100MG/ML) SOL 4ML NEB SCH ×3 (13:37→23:52)
[2021-08-06] MEDS: ALBUTEROL SULF 2.5 MG/0.5ML(0.5%) NEB SOLN NEB SCH ×3 (13:38→23:53)
[2021-08-06] MEDS: BUDESONIDE (INHALATION) 0.5 MG/2 ML NEB NEB SCH ×2 (13:38→18:46)
[2021-08-06 15:53] LABS: INR 1.48 (0.9-1.15); Partial Thromboplastin Time 33.9 sec (23.6-33.0)
[2021-08-06 15:54] LABS: Potassium 4.3 mmol/L (3.5-5.1)
[2021-08-06 15:57] LABS: Calcium 8.6 mg/dL (8.5-10.1)
[2021-08-06 17:00] VITALS: BP 179/96
[2021-08-06] MEDS ORDERED: WARFARIN SODIUM 1 MG TAB PO ONE (17:00)
[2021-08-06] MEDS ORDERED: amLODIPine BESYLATE 5 MG TAB PO ONE (17:00)
[2021-08-06] MEDS: DONEPEZIL HYDROCHLORIDE 5 MG TAB NG SCH (21:25)
[2021-08-06] MEDS: ATORVASTATIN 20 MG TAB NG SCH (21:26)
[2021-08-06 22:00] VITALS: BP 145/74
[2021-08-07] MEDS: DOXYCYCLINE 100MG/250ML 250 ML IV SCH (00:05)
[2021-08-07] MEDS: ACCU-CHEK COMFORT CURVE STRIP VI SCH ×5 (00:05→23:47)
[2021-08-07] MEDS: InsuLIN REG 1unit/0.01ml Soln (100units/ml) SC SCH ×5 (00:06→23:44)
[2021-08-07 05:00] VITALS: BP 131/74
[2021-08-07 08:33] LABS: INR 1.29 (0.9-1.15)
[2021-08-07 09:30] VITALS: BP 150/83
[2021-08-07] MEDS: ZINC SULFATE 220mg CAP or TAB NG SCH (09:47)
[2021-08-07] MEDS: DexAMETHasone SOD PHOS 10MG/1ML VIAL INJ IV SCH (09:47)
[2021-08-07] MEDS: CHOLECALCIFEROL (VITD3) 1,000UNIT=25mCg TAB NG SCH (09:47)
[2021-08-07] MEDS: OMEPRAZOLE 20MG/10ML ORAL SUSP NG SCH (09:47)
[2021-08-07] MEDS: ASCORBIC ACID 1,000 MG TAB NG SCH (09:47)
[2021-08-07] MEDS: ASPirin 81 mg TAB NG SCH (09:47)
[2021-08-07] MEDS: cefTRIAXone 1GM/50ML D5W 50 ML IV SCH (09:47)
[2021-08-07] MEDS: amLODIPine BESYLATE 5 MG TAB PO SCH (09:48)
[2021-08-07] MEDS: ENOXAPARIN SOD 40 MG/0.4 ML SYRINGE SC SCH (09:48)
[2021-08-07] MEDS: METOPROLOL TARTRATE 25 MG TAB PO SCH ×2 (09:49→22:09)
[2021-08-07] MEDS ORDERED: SOD CHL 0.45% 1,000 ML IV SCH (11:00)
[2021-08-07 13:30] VITALS: BP 158/84
[2021-08-07] MEDS ORDERED: WARFARIN SODIUM 2 MG TAB PO ONE (17:00)
[2021-08-07 17:03] VITALS: BP 139/79
[2021-08-07] MEDS: glipiZIDE 5 MG TAB PO SCH (17:46)
[2021-08-07 20:00] VITALS: BP 156/87
[2021-08-07] MEDS: ACETYLCYSTEINE 10 %(100MG/ML) SOL 4ML NEB SCH (21:09)
[2021-08-07] MEDS: BUDESONIDE (INHALATION) 0.5 MG/2 ML NEB NEB SCH (21:09)
[2021-08-07] MEDS: ALBUTEROL SULF 2.5 MG/0.5ML(0.5%) NEB SOLN NEB SCH (21:09)
[2021-08-07] MEDS: ATORVASTATIN 20 MG TAB NG SCH (22:02)
[2021-08-07] MEDS: DOXYCYCLINE 100 MG TAB/CAP PO SCH (22:10)
[2021-08-07] MEDS: DONEPEZIL HYDROCHLORIDE 5 MG TAB NG SCH (22:10)
[2021-08-08 05:00] VITALS: BP 123/71
[2021-08-08] MEDS: ACCU-CHEK COMFORT CURVE STRIP VI SCH ×3 (05:55→17:36)
[2021-08-08] MEDS: InsuLIN REG 1unit/0.01ml Soln (100units/ml) SC SCH ×4 (05:55→23:33)
[2021-08-08] MEDS: BUDESONIDE (INHALATION) 0.5 MG/2 ML NEB NEB SCH ×2 (06:43→20:10)
[2021-08-08] MEDS: ACETYLCYSTEINE 10 %(100MG/ML) SOL 4ML NEB SCH ×4 (06:43→20:10)
[2021-08-08] MEDS: ALBUTEROL SULF 2.5 MG/0.5ML(0.5%) NEB SOLN NEB SCH ×4 (06:43→20:10)
[2021-08-08] MEDS: glipiZIDE 5 MG TAB PO SCH ×2 (06:48→17:35)
[2021-08-08 07:38] LABS: Basophils # (auto) 0 10 ^3/uL (0-0.2); Basophils % (auto) 0.3 % (0.0-2.0); Eosinophils # (auto) 0 10 ^3/uL (0-0.8); Eosinophils % (auto) 0.2 % (0.0-7.0); Hematocrit 29.1 % (36.0-46.0); Hemoglobin 9.8 g/dL (12.2-16.2); Lymphocytes # (auto) 0.6 10 ^3/uL (0.4-5.4); Lymphocytes % (auto) 5.7 % (10.0-50.0); Mean Corpuscular Hemoglobin 33.1 pg (28.0-32.0); Mean Corpuscular Hgb Conc. 33.8 g/dL (32.0-36.0); Monocytes # (auto) 0.7 10 ^3/uL (0-1.3); Monocytes % (auto) 7.1 % (0.0-12.0); Neutrophils # (auto) 8.5 10 ^3/uL (1.6-8.6); Neutrophils % (auto) 86.7 % (37.0-80.0); Nucleated Red Blood Cells % 0.1 %; Red Blood Cells 2.97 10^6/uL (4.0-5.20); Red Cell Distribution Width 13.4 % (11.8-14.3); White Blood Cell 9.8 10^3/uL (4.4-10.8)
[2021-08-08 07:49] LABS: Potassium 4.5 mmol/L (3.5-5.1)
[2021-08-08 07:50] LABS: INR 1.44 (0.9-1.15); Partial Thromboplastin Time 29.6 sec (23.6-33.0)
[2021-08-08 07:58] LABS: BUN/Creatinine Ratio 39.2; Calcium 8.8 mg/dL (8.5-10.1)
[2021-08-08 08:38] VITALS: BP 147/82
[2021-08-08] MEDS: ASPirin 81 mg TAB NG SCH (09:53)
[2021-08-08] MEDS: ZINC SULFATE 220mg CAP or TAB NG SCH (09:53)
[2021-08-08] MEDS: CHOLECALCIFEROL (VITD3) 1,000UNIT=25mCg TAB NG SCH (09:53)
[2021-08-08] MEDS: ASCORBIC ACID 1,000 MG TAB NG SCH (09:53)
[2021-08-08] MEDS: OMEPRAZOLE 20MG/10ML ORAL SUSP NG SCH (09:53)
[2021-08-08] MEDS: METOPROLOL TARTRATE 25 MG TAB PO SCH ×2 (09:54→22:11)
[2021-08-08] MEDS: amLODIPine BESYLATE 5 MG TAB PO SCH (09:54)
[2021-08-08] MEDS: ENOXAPARIN SOD 40 MG/0.4 ML SYRINGE SC SCH (09:54)
[2021-08-08] MEDS: DOXYCYCLINE 100 MG TAB/CAP PO SCH ×2 (09:54→22:11)
[2021-08-08 12:18] VITALS: BP 121/71
[2021-08-08 16:21] LABS: Basophils # (auto) 0 10 ^3/uL (0-0.2); Basophils % (auto) 0.4 % (0.0-2.0); Eosinophils # (auto) 0 10 ^3/uL (0-0.8); Eosinophils % (auto) 0.3 % (0.0-7.0); Hematocrit 30.9 % (36.0-46.0); Lymphocytes # (auto) 0.8 10 ^3/uL (0.4-5.4); Lymphocytes % (auto) 7.4 % (10.0-50.0); Mean Corpuscular Hemoglobin 32.2 pg (28.0-32.0); Mean Corpuscular Hgb Conc. 32.4 g/dL (32.0-36.0); Mean Corpuscular Volume 99.3 fL (80.0-100.0); Monocytes # (auto) 0.7 10 ^3/uL (0-1.3); Monocytes % (auto) 6.6 % (0.0-12.0); Neutrophils # (auto) 9.3 10 ^3/uL (1.6-8.6); Neutrophils % (auto) 85.3 % (37.0-80.0); Nucleated Red Blood Cells % 0.2 %; Red Blood Cells 3.11 10^6/uL (4.0-5.20); Red Cell Distribution Width 13.7 % (11.8-14.3)
[2021-08-08 16:32] LABS: Albumin 2.4 g/dL (3.4-5.0); Calcium 8.7 mg/dL (8.5-10.1); Potassium 4.6 mmol/L (3.5-5.1)
[2021-08-08 16:36] LABS: BUN/Creatinine Ratio 38.1; Bilirubin, Total 0.4 mg/dL (0.2-1.0); Total Protein 5.5 g/dL (6.4-8.2)
[2021-08-08] MEDS ORDERED: WARFARIN SODIUM 2.5 MG TAB PO ONE (17:00)
[2021-08-08 17:18] VITALS: BP 128/74
[2021-08-08 22:00] VITALS: BP 139/77
[2021-08-08] MEDS: ATORVASTATIN 20 MG TAB PO SCH (22:10)
[2021-08-08] MEDS: DONEPEZIL HYDROCHLORIDE 5 MG TAB PO SCH (22:10)
[2021-08-09] MEDS: ACCU-CHEK COMFORT CURVE STRIP VI SCH ×4 (00:26→17:12)
[2021-08-09] MEDS: ACETYLCYSTEINE 10 %(100MG/ML) SOL 4ML NEB SCH ×4 (01:46→18:00)
[2021-08-09] MEDS: ALBUTEROL SULF 2.5 MG/0.5ML(0.5%) NEB SOLN NEB SCH ×4 (01:46→18:00)
[2021-08-09 05:00] VITALS: BP 133/74
[2021-08-09] MEDS: InsuLIN REG 1unit/0.01ml Soln (100units/ml) SC SCH ×3 (05:32→17:12)
[2021-08-09] MEDS: BUDESONIDE (INHALATION) 0.5 MG/2 ML NEB NEB SCH ×2 (06:10→19:00)
[2021-08-09] MEDS: glipiZIDE 5 MG TAB PO SCH ×2 (06:37→17:37)
[2021-08-09 08:26] LABS: INR 1.33 (0.9-1.15)
[2021-08-09 09:00] VITALS: BP 141/67
[2021-08-09] MEDS: METOPROLOL TARTRATE 25 MG TAB PO SCH ×2 (10:00→22:04)
[2021-08-09] MEDS: ENOXAPARIN SOD 40 MG/0.4 ML SYRINGE SC SCH (10:00)
[2021-08-09] MEDS: amLODIPine BESYLATE 5 MG TAB PO SCH (10:00)
[2021-08-09] MEDS: ASCORBIC ACID 1,000 MG TAB PO SCH (10:00)
[2021-08-09] MEDS: OMEPRAZOLE 20MG/10ML ORAL SUSP PO SCH (10:00)
[2021-08-09] MEDS: DOXYCYCLINE 100 MG TAB/CAP PO SCH ×2 (10:00→22:04)
[2021-08-09] MEDS: ASPirin 81 mg TAB PO SCH (10:00)
[2021-08-09] MEDS: ZINC SULFATE 220mg CAP or TAB PO SCH (10:00)
[2021-08-09] MEDS: CHOLECALCIFEROL (VITD3) 1,000UNIT=25mCg TAB PO SCH (10:00)
[2021-08-09 13:00] VITALS: BP 121/74
[2021-08-09 17:00] VITALS: BP 122/76
[2021-08-09] MEDS ORDERED: WARFARIN SODIUM 1 MG TAB PO ONE (17:00)
[2021-08-09] MEDS ORDERED: POLYETHYLENE GLYCOL 17 GM PWDR PO PRN (20:15)
[2021-08-09] MEDS ORDERED: POLYETHYLENE GLYCOL 17 GM PWDR PO ONE (20:15)
[2021-08-09 22:00] VITALS: BP 122/74
[2021-08-09] MEDS: DONEPEZIL HYDROCHLORIDE 5 MG TAB PO SCH (22:03)
[2021-08-09] MEDS: ATORVASTATIN 20 MG TAB PO SCH (22:04)
[2021-08-10 04:52] LABS: Basophils # (auto) 0 10 ^3/uL (0-0.2); Basophils % (auto) 0.4 % (0.0-2.0); Eosinophils # (auto) 0.1 10 ^3/uL (0-0.8); Eosinophils % (auto) 0.9 % (0.0-7.0); Hemoglobin 10.5 g/dL (12.2-16.2); Lymphocytes # (auto) 0.8 10 ^3/uL (0.4-5.4); Lymphocytes % (auto) 8.3 % (10.0-50.0); Mean Corpuscular Hemoglobin 32.7 pg (28.0-32.0); Mean Corpuscular Hgb Conc. 32.8 g/dL (32.0-36.0); Mean Corpuscular Volume 99.6 fL (80.0-100.0); Monocytes # (auto) 0.6 10 ^3/uL (0-1.3); Monocytes % (auto) 5.9 % (0.0-12.0); Neutrophils # (auto) 8.3 10 ^3/uL (1.6-8.6); Neutrophils % (auto) 84.5 % (37.0-80.0); Nucleated Red Blood Cells % 0.2 %; Red Blood Cells 3.21 10^6/uL (4.0-5.20); Red Cell Distribution Width 13.6 % (11.8-14.3); White Blood Cell 9.9 10^3/uL (4.4-10.8)
[2021-08-10 05:00] VITALS: BP 123/65
[2021-08-10 05:08] LABS: INR 2.4 (0.9-1.15)
[2021-08-10 05:13] LABS: Albumin 2.2 g/dL (3.4-5.0); Calcium 8.4 mg/dL (8.5-10.1); Potassium 4.6 mmol/L (3.5-5.1)
[2021-08-10 05:18] LABS: BUN/Creatinine Ratio 39.6; Bilirubin, Total 0.5 mg/dL (0.2-1.0); Total Protein 5.2 g/dL (6.4-8.2)
[2021-08-10] MEDS: ACCU-CHEK COMFORT CURVE STRIP VI SCH ×4 (05:39→17:20)
[2021-08-10] MEDS: InsuLIN REG 1unit/0.01ml Soln (100units/ml) SC SCH ×4 (05:39→17:20)
[2021-08-10] MEDS: BUDESONIDE (INHALATION) 0.5 MG/2 ML NEB NEB SCH ×2 (06:20→22:00)
[2021-08-10] MEDS: ALBUTEROL SULF 2.5 MG/0.5ML(0.5%) NEB SOLN NEB SCH ×4 (06:20→18:00)
[2021-08-10] MEDS: ACETYLCYSTEINE 10 %(100MG/ML) SOL 4ML NEB SCH ×4 (06:21→18:00)
[2021-08-10] MEDS: glipiZIDE 5 MG TAB PO SCH ×2 (06:30→17:21)
[2021-08-10 09:00] VITALS: BP 133/79
[2021-08-10] MEDS: DOXYCYCLINE 100 MG TAB/CAP PO SCH ×2 (10:43→22:28)
[2021-08-10] MEDS: amLODIPine BESYLATE 5 MG TAB PO SCH (10:43)
[2021-08-10] MEDS: ASPirin 81 mg TAB PO SCH (10:44)
[2021-08-10] MEDS: METOPROLOL TARTRATE 25 MG TAB PO SCH ×2 (10:44→22:29)
[2021-08-10] MEDS: CHOLECALCIFEROL (VITD3) 1,000UNIT=25mCg TAB PO SCH (10:44)
[2021-08-10] MEDS: ZINC SULFATE 220mg CAP or TAB PO SCH (10:44)
[2021-08-10] MEDS: ASCORBIC ACID 1,000 MG TAB PO SCH (10:45)
[2021-08-10 13:00] VITALS: BP 121/66
[2021-08-10] MEDS ORDERED: LIDOCAINE VISCOUS 2% 15ML UD MT ONE (13:00)
[2021-08-10] MEDS ORDERED: WARF3TAB22 PO (14:24)
[2021-08-10] MEDS ORDERED: MET25T PO (14:24)
[2021-08-10] MEDS ORDERED: NYS5LQ MT (14:24)
[2021-08-10] MEDS ORDERED: LIDV15LQ MT (14:24)
[2021-08-10] MEDS ORDERED: LACTULOSE 20Gm/30ML SOLN PO ONE (14:30)
[2021-08-10] MEDS: OMEPRAZOLE 20MG/10ML ORAL SUSP PO SCH (15:23)
[2021-08-10 17:00] VITALS: BP 138/91
[2021-08-10] MEDS ORDERED: WARFARIN SODIUM 1 MG TAB PO ONE (17:00)
[2021-08-10] MEDS ORDERED: LIDOCAINE VISCOUS 2% 15ML UD MT PRN (17:00)
[2021-08-10] MEDS: NYSTATIN (MOUTH-THROAT) 500,000 UNITS/5 ML SUSP MT SCH ×2 (17:11→22:28)
[2021-08-10 22:00] VITALS: BP 133/65
[2021-08-10] MEDS: DONEPEZIL HYDROCHLORIDE 5 MG TAB PO SCH (22:28)
[2021-08-10] MEDS: ATORVASTATIN 20 MG TAB PO SCH (22:28)
[2021-08-11] MEDS: InsuLIN REG 1unit/0.01ml Soln (100units/ml) SC SCH ×3 (00:10→12:41)
[2021-08-11 04:10] VITALS: BP 125/68
[2021-08-11] MEDS: ALBUTEROL SULF 2.5 MG/0.5ML(0.5%) NEB SOLN NEB SCH ×3 (05:57→12:10)
[2021-08-11] MEDS: BUDESONIDE (INHALATION) 0.5 MG/2 ML NEB NEB SCH (05:57)
[2021-08-11] MEDS: ACETYLCYSTEINE 10 %(100MG/ML) SOL 4ML NEB SCH ×3 (05:58→12:11)
[2021-08-11] MEDS: ACCU-CHEK COMFORT CURVE STRIP VI SCH ×3 (06:00→12:00)
[2021-08-11 07:03] LABS: Albumin 2.2 g/dL (3.4-5.0)
[2021-08-11 07:09] LABS: Basophils # (auto) 0.1 10 ^3/uL (0-0.2); Basophils % (auto) 0.8 % (0.0-2.0); Eosinophils # (auto) 0.1 10 ^3/uL (0-0.8); Hematocrit 28.4 % (36.0-46.0); Hemoglobin 9.4 g/dL (12.2-16.2); Lymphocytes # (auto) 0.6 10 ^3/uL (0.4-5.4); Lymphocytes % (auto) 7.3 % (10.0-50.0); Mean Corpuscular Hemoglobin 32.8 pg (28.0-32.0); Mean Corpuscular Volume 99.2 fL (80.0-100.0); Monocytes # (auto) 0.6 10 ^3/uL (0-1.3); Neutrophils # (auto) 7.4 10 ^3/uL (1.6-8.6); Neutrophils % (auto) 83.9 % (37.0-80.0); Nucleated Red Blood Cells % 0.1 %; Red Blood Cells 2.86 10^6/uL (4.0-5.20); Red Cell Distribution Width 13.2 % (11.8-14.3); White Blood Cell 8.9 10^3/uL (4.4-10.8)
[2021-08-11] MEDS: NYSTATIN (MOUTH-THROAT) 500,000 UNITS/5 ML SUSP MT SCH ×2 (07:10→12:31)
[2021-08-11] MEDS: glipiZIDE 5 MG TAB PO SCH (07:11)
[2021-08-11 08:06] LABS: INR 5.17 (0.9-1.15)
[2021-08-11 09:00] VITALS: BP 138/70
[2021-08-11] MEDS ORDERED: LACTULOSE 20Gm/30ML SOLN PO SCH (10:00)
[2021-08-11] MEDS: ASPirin 81 mg TAB PO SCH (10:01)
[2021-08-11] MEDS: ZINC SULFATE 220mg CAP or TAB PO SCH (10:04)
[2021-08-11] MEDS: amLODIPine BESYLATE 5 MG TAB PO SCH (10:06)
[2021-08-11] MEDS: METOPROLOL TARTRATE 25 MG TAB PO SCH (10:06)
[2021-08-11] MEDS: DOXYCYCLINE 100 MG TAB/CAP PO SCH (10:07)
[2021-08-11] MEDS: ASCORBIC ACID 1,000 MG TAB PO SCH (10:07)
[2021-08-11] MEDS: CHOLECALCIFEROL (VITD3) 1,000UNIT=25mCg TAB PO SCH (10:07)
[2021-08-11] MEDS: OMEPRAZOLE 20MG/10ML ORAL SUSP PO SCH (11:37)
[2021-08-11 14:37] VITALS: BP 132/72
== END 2021-08-11 16:04 | disposition hospice, home (50) | DRG 207 ==
LOC: ER 16:55 → TELE 21:26 → TELE-WESTW 07-29 14:15
PROVIDERS: ADMIT Nurse Practitioner; ATTEND Internal Medicine
PROC: 5A1955Z Respiratory Ventilation, Greater than 96 Consecutive Hours (ICD-10-PCS; principal; 2021-07-29)
PROC: 0BH17EZ Insertion of Endotracheal Airway into Trachea, Via Natural or Artificial Opening (ICD-10-PCS; 2021-07-29)
PROC: 06HM33Z Insertion of Infusion Device into Right Femoral Vein, Percutaneous Approach (ICD-10-PCS; 2021-07-31)
DX: U07.1 COVID-19 (principal); E43 Unspecified severe protein-calorie malnutrition; I21.4 Non-ST elevation (NSTEMI) myocardial infarction; G93.41 Metabolic encephalopathy; J12.82 Pneumonia due to coronavirus disease 2019; J96.01 Acute respiratory failure with hypoxia; I50.31 Acute diastolic (congestive) heart failure; N17.0 Acute kidney failure with tubular necrosis; I13.0 Hypertensive heart and chronic kidney disease with heart failure and stage 1 through stage 4 chronic kidney disease, or unspecified chronic kidney disease; I47.2 Ventricular tachycardia; J98.11 Atelectasis; E87.0 Hyperosmolality and hypernatremia; E11.649 Type 2 diabetes mellitus with hypoglycemia without coma; R55 Syncope and collapse; E11.65 Type 2 diabetes mellitus with hyperglycemia; D64.9 Anemia, unspecified; E11.22 Type 2 diabetes mellitus with diabetic chronic kidney disease; E87.5 Hyperkalemia; F03.90 Unspecified dementia, unspecified severity, without behavioral disturbance, psychotic disturbance, mood disturbance, and anxiety; I25.10 Atherosclerotic heart disease of native coronary artery without angina pectoris; R79.89 Other specified abnormal findings of blood chemistry; I25.5 Ischemic cardiomyopathy; I48.91 Unspecified atrial fibrillation; N18.9 Chronic kidney disease, unspecified; T45.515A Adverse effect of anticoagulants, initial encounter; Y92.89 Other specified places as the place of occurrence of the external cause; Z68.30 Body mass index [BMI] 30.0-30.9, adult; Z83.3 Family history of diabetes mellitus; Z85.41 Personal history of malignant neoplasm of cervix uteri; Z90.710 Acquired absence of both cervix and uterus; Z95.1 Presence of aortocoronary bypass graft; Z90.49 Acquired absence of other specified parts of digestive tract; Z95.2 Presence of prosthetic heart valve
CPT/HCPCS: 36415; 36600; 70450; 71045; 76775; 80048; 80053; 81001; 82040; 82550; 82565; 82728; 82805; 82962; 83036; 83605; 83615; 83735; 83880; 84132; 84443; 84484; 85014; 85018; 85025; 85379; 85610; 85730; 86141; 87070; 87205; 87426; 92610; 93005; 93306; 93970; 94002; 94003; 94640; 96365; 96367; 96375; 97110; 97116; 97163; 97530; 99291; G0378; J0330; J0696; J1100; J1815; J2250; J3490

== ENCOUNTER 2021-12-05 08:43 | Inpatient (IN) | payer MEDICARE, OTHER ==
[~2021-12-05] VITALS: Ht 154.9 cm; Wt 65.9 kg
[~2021-12-05 08:43] MED LIST: ALBU108A5 INH; ASPI-543 PO; ATOR20TA50 PO; DONE1TAB88 PO; FURO40TA4 PO; GLIP10TA9 PO; LIDV15LQ MT; LISI-275 PO; MET25T PO; NYS5LQ MT; POTA-264 PO; WARF3TAB22 PO
[2021-12-05] MEDS ORDERED: SODIUM CHLORIDE 0.9% 1,000 ML IV ONE (09:45)
[2021-12-05 10:42] LABS: Basophils # (auto) 0 10 ^3/uL (0-0.2); Basophils % (auto) 0.9 % (0.0-2.0); Eosinophils # (auto) 0.1 10 ^3/uL (0-0.8); Eosinophils % (auto) 2.8 % (0.0-7.0); Hematocrit 32.9 % (36.0-46.0); Hemoglobin 11.1 g/dL (12.2-16.2); Lymphocytes # (auto) 0.9 10 ^3/uL (0.4-5.4); Lymphocytes % (auto) 25.9 % (10.0-50.0); Mean Corpuscular Hemoglobin 34.7 pg (28.0-32.0); Mean Corpuscular Hgb Conc. 33.8 g/dL (32.0-36.0); Mean Corpuscular Volume 102.7 fL (80.0-100.0); Monocytes # (auto) 0.2 10 ^3/uL (0-1.3); Monocytes % (auto) 7.2 % (0.0-12.0); Neutrophils # (auto) 2.2 10 ^3/uL (1.6-8.6); Neutrophils % (auto) 63.2 % (37.0-80.0); Nucleated Red Blood Cells % 0.1 %; Red Blood Cells 3.21 10^6/uL (4.0-5.20); Red Cell Distribution Width 13.1 % (11.8-14.3); White Blood Cell 3.4 10^3/uL (4.4-10.8)
[2021-12-05 10:58] LABS: Albumin 3.3 g/dL (3.4-5.0); Calcium 9.6 mg/dL (8.5-10.1); Potassium 4.7 mmol/L (3.5-5.1)
[2021-12-05 11:02] LABS: BUN/Creatinine Ratio 31.9; Bilirubin, Total 0.2 mg/dL (0.2-1.0); Total Protein 6.6 g/dL (6.4-8.2)
[2021-12-05 14:29] LABS: Urine Bacteria NONE SEEN /hpf (None Seen); Urine Blood Negative /uL (Negative); Urine Specific Gravity 1.015 (1.001-1.035); Urine WBC 1 /hpf (0 - 5)
[2021-12-05] MEDS ORDERED: FUROSEMIDE 20 MG/2 ML VIAL IV ONE (14:45)
[2021-12-05] MEDS ORDERED: DEXTROSE (50%) 50ML SYRG IV PRN (14:45)
[2021-12-05] MEDS ORDERED: ONDANSETRON HCL 4 MG/2 ML VIAL IV PRN (14:45)
[2021-12-05 15:37] LABS: Cholesterol 148 mg/dL (< 200); HDL Cholesterol 52 mg/dL (40-59); LDL Cholesterol 75 mg/dL (< 100); Triglycerides 102 mg/dL (< 150)
[2021-12-05] MEDS: ACCU-CHEK COMFORT CURVE STRIP VI SCH ×2 (17:00→21:52)
[2021-12-05] MEDS: InsuLIN REG 1unit/0.01ml Soln (100units/ml) SC SCH ×2 (17:00→21:53)
[2021-12-05 17:30] VITALS: BP 116/56
[2021-12-05] MEDS ORDERED: hydrALAZINE HCL 20 MG/ML VL IV PRN (17:30)
[2021-12-05] MEDS ORDERED: LORA0.5T20 PO (18:00)
[2021-12-05] MEDS ORDERED: LORA2CON5 PO (18:02)
[2021-12-05] MEDS: glipiZIDE 5 MG TAB PO SCH (18:36)
[2021-12-05] MEDS: ACETAMINOPHEN 325 MG TAB PO PRN (19:54)
[2021-12-05 20:00] VITALS: BP 146/61
[2021-12-05 20:09] LABS: INR 1.01 (0.9-1.15)
[2021-12-05] MEDS: LORazepam 0.5 MG TAB PO PRN (21:36)
[2021-12-05 22:00] VITALS: BP_SYST 107; BP_SYST 146; BP_DIAS 58; BP_DIAS 61
[2021-12-06] VITALS (7 sets, daily range): BP systolic 92–157; BP diastolic 49–71
[2021-12-06] MEDS: ACETAMINOPHEN 325 MG TAB PO PRN ×3 (03:31→19:51)
[2021-12-06 05:44] LABS: Basophils # (auto) 0 10 ^3/uL (0-0.2); Eosinophils # (auto) 0.1 10 ^3/uL (0-0.8); Hemoglobin 10.2 g/dL (12.2-16.2); Neutrophils # (auto) 2.7 10 ^3/uL (1.6-8.6)
[2021-12-06 05:45] LABS: Basophils % (auto) 0.7 % (0.0-2.0); Eosinophils % (auto) 2.2 % (0.0-7.0); Lymphocytes # (auto) 1.1 10 ^3/uL (0.4-5.4); Lymphocytes % (auto) 25.8 % (10.0-50.0); Mean Corpuscular Hemoglobin 35.9 pg (28.0-32.0); Mean Corpuscular Hgb Conc. 35.3 g/dL (32.0-36.0); Mean Corpuscular Volume 101.6 fL (80.0-100.0); Monocytes # (auto) 0.3 10 ^3/uL (0-1.3); Neutrophils % (auto) 63.3 % (37.0-80.0); Red Blood Cells 2.85 10^6/uL (4.0-5.20); Red Cell Distribution Width 13.1 % (11.8-14.3); White Blood Cell 4.3 10^3/uL (4.4-10.8)
[2021-12-06 05:58] LABS: Calcium 9.4 mg/dL (8.5-10.1); Potassium 4.3 mmol/L (3.5-5.1)
[2021-12-06 06:00] LABS: INR 1.02 (0.9-1.15)
[2021-12-06 06:02] LABS: BUN/Creatinine Ratio 35.4; Bilirubin, Total 0.3 mg/dL (0.2-1.0)
[2021-12-06] MEDS: ACCU-CHEK COMFORT CURVE STRIP VI SCH ×4 (06:44→22:17)
[2021-12-06] MEDS: InsuLIN REG 1unit/0.01ml Soln (100units/ml) SC SCH ×4 (06:45→22:00)
[2021-12-06] MEDS: glipiZIDE 5 MG TAB PO SCH ×2 (07:00→16:51)
[2021-12-06] MEDS ORDERED: FUROSEMIDE 20 MG/2 ML VIAL IV SCH (10:00)
[2021-12-06] MEDS ORDERED: ENOXAPARIN SOD 30 MG/0.3 ML SYRINGE SC SCH (10:00)
[2021-12-06] MEDS ORDERED: PATIENTS OWN MEDICATION (Warfarin Sodium 1 TAB) PO SCH (10:00)
[2021-12-06] MEDS: FUROSEMIDE 40 MG/4 ML VIAL IV SCH (11:16)
[2021-12-06] MEDS: POTASSIUM CHL 10 Meq TABLET PO SCH (11:16)
[2021-12-06] MEDS: ATORVASTATIN 20 MG TAB PO SCH (11:16)
[2021-12-06] MEDS: ASPirin-EC 81 mg tab PO SCH (11:16)
[2021-12-06] MEDS: LORazepam 0.5 MG TAB PO PRN (22:17)
[2021-12-07 05:00] VITALS: BP 162/65
[2021-12-07] MEDS: ACCU-CHEK COMFORT CURVE STRIP VI SCH ×2 (07:00→11:47)
[2021-12-07] MEDS: glipiZIDE 5 MG TAB PO SCH (07:00)
[2021-12-07] MEDS: InsuLIN REG 1unit/0.01ml Soln (100units/ml) SC SCH ×2 (07:00→11:30)
[2021-12-07 09:00] VITALS: BP 138/56
[2021-12-07] MEDS: ASPirin-EC 81 mg tab PO SCH (09:39)
[2021-12-07] MEDS: FUROSEMIDE 40 MG/4 ML VIAL IV SCH (09:39)
[2021-12-07] MEDS: ATORVASTATIN 20 MG TAB PO SCH (09:40)
[2021-12-07] MEDS: POTASSIUM CHL 10 Meq TABLET PO SCH (09:40)
[2021-12-07 13:00] VITALS: BP 151/71
[2021-12-07 13:25] VITALS: BP 143/62
== END 2021-12-07 15:50 | disposition home or self-care (01) | DRG 682 ==
LOC: ER 08:43 → EDBD 08:43 → TELE 14:35 → TELE-CENTR 17:09
PROVIDERS: ADMIT Registered Nurse; ATTEND Family Medicine
DX: N17.0 Acute kidney failure with tubular necrosis (principal); I50.33 Acute on chronic diastolic (congestive) heart failure; E43 Unspecified severe protein-calorie malnutrition; I13.0 Hypertensive heart and chronic kidney disease with heart failure and stage 1 through stage 4 chronic kidney disease, or unspecified chronic kidney disease; D68.59 Other primary thrombophilia; R55 Syncope and collapse; Z20.822 Contact with and (suspected) exposure to COVID-19; D63.8 Anemia in other chronic diseases classified elsewhere; E11.40 Type 2 diabetes mellitus with diabetic neuropathy, unspecified; E11.65 Type 2 diabetes mellitus with hyperglycemia; I25.10 Atherosclerotic heart disease of native coronary artery without angina pectoris; I48.91 Unspecified atrial fibrillation; I25.5 Ischemic cardiomyopathy; N18.32 Chronic kidney disease, stage 3b; E11.22 Type 2 diabetes mellitus with diabetic chronic kidney disease; Z68.27 Body mass index [BMI] 27.0-27.9, adult; I25.2 Old myocardial infarction; Z83.3 Family history of diabetes mellitus; Z85.41 Personal history of malignant neoplasm of cervix uteri; Z86.16 Personal history of COVID-19; Z87.01 Personal history of pneumonia (recurrent); Z90.710 Acquired absence of both cervix and uterus; Z95.1 Presence of aortocoronary bypass graft; Z95.2 Presence of prosthetic heart valve; Z90.49 Acquired absence of other specified parts of digestive tract
CPT/HCPCS: 36415; 70450; 71045; 80053; 80061; 81001; 82962; 83036; 83880; 84484; 85025; 85379; 85610; 93005; 93886; 96360; G0378; J1815; J2405

== ENCOUNTER 2022-04-04 01:07 | Inpatient (IN) | payer MEDICARE, OTHER ==
[~2022-04-04] VITALS: Ht 165.1 cm; Wt 60.6 kg
[~2022-04-04 01:07] MED LIST changes: -LIDV15LQ MT; +LORA2CON5 PO; -NYS5LQ MT; -WARF3TAB22 PO
[2022-04-04 01:36] LABS: Basophils # (auto) 0 10 ^3/uL (0-0.2); Eosinophils # (auto) 0.1 10 ^3/uL (0-0.8); Lymphocytes # (auto) 1.4 10 ^3/uL (0.4-5.4); Mean Corpuscular Hgb Conc. 34.1 g/dL (32.0-36.0); Mean Corpuscular Volume 102.7 fL (80.0-100.0); Monocytes # (auto) 0.3 10 ^3/uL (0-1.3); Nucleated Red Blood Cells % 0.1 %; Red Cell Distribution Width 13.6 % (11.8-14.3); White Blood Cell 3.9 10^3/uL (4.4-10.8)
[2022-04-04 01:38] LABS: Basophils % (auto) 0.6 % (0.0-2.0); Eosinophils % (auto) 3.3 % (0.0-7.0); Hematocrit 26.1 % (36.0-46.0); Hemoglobin 8.9 g/dL (12.2-16.2); Lymphocytes % (auto) 36.7 % (10.0-50.0); Monocytes % (auto) 7.9 % (0.0-12.0); Neutrophils % (auto) 51.5 % (37.0-80.0); Red Blood Cells 2.54 10^6/uL (4.0-5.20)
[2022-04-04 01:54] LABS: Albumin 3.2 g/dL (3.4-5.0); BUN/Creatinine Ratio 30.6; Calcium 8.3 mg/dL (8.5-10.1); Potassium 4.7 mmol/L (3.5-5.1)
[2022-04-04 01:56] LABS: Bilirubin, Total 0.2 mg/dL (0.2-1.0); Total Protein 5.5 g/dL (6.4-8.2)
[2022-04-04] MEDS ORDERED: ASPirin 81 mg TAB PO ONE (04:45)
[2022-04-04] MEDS ORDERED: MORPHINE SULFATE INJ 2 MG/ml SYRG IV PRN (05:30)
[2022-04-04] MEDS ORDERED: ONDANSETRON HCL 4 MG/2 ML VIAL IV PRN ×2 (05:30→06:00)
[2022-04-04] MEDS ORDERED: ACETAMINOPHEN 325 MG TAB PO PRN (05:30)
[2022-04-04] MEDS ORDERED: MORPHINE SULFATE 4 MG/ML SYR/VIAL IV PRN (05:30)
[2022-04-04] MEDS ORDERED: NITROGLYCERIN 0.4 MG SL TAB SL PRN ×2 (05:30→06:00)
[2022-04-04] MEDS ORDERED: SODIUM CHLORIDE 0.9% 1,000 ML IV SCH (05:30)
[2022-04-04 09:07] LABS: Basophils # (auto) 0 10 ^3/uL (0-0.2); Basophils % (auto) 0.9 % (0.0-2.0); Eosinophils # (auto) 0.1 10 ^3/uL (0-0.8); Lymphocytes # (auto) 1.3 10 ^3/uL (0.4-5.4); Mean Corpuscular Hemoglobin 33.8 pg (28.0-32.0); Monocytes # (auto) 0.3 10 ^3/uL (0-1.3); Neutrophils # (auto) 1.5 10 ^3/uL (1.6-8.6); White Blood Cell 3.2 10^3/uL (4.4-10.8)
[2022-04-04 09:09] LABS: Eosinophils % (auto) 3.2 % (0.0-7.0); Hematocrit 29.2 % (36.0-46.0); Hemoglobin 9.6 g/dL (12.2-16.2); Mean Corpuscular Volume 102.5 fL (80.0-100.0); Monocytes % (auto) 9.3 % (0.0-12.0); Neutrophils % (auto) 47.6 % (37.0-80.0); Red Blood Cells 2.85 10^6/uL (4.0-5.20); Red Cell Distribution Width 13.6 % (11.8-14.3)
[2022-04-04 09:15] LABS: Calcium 8.9 mg/dL (8.5-10.1); Potassium 4.2 mmol/L (3.5-5.1)
[2022-04-04 09:30] VITALS: BP 187/77
[2022-04-04 09:40] VITALS: BP 187/77
[2022-04-04] MEDS ORDERED: CLOPIDOGREL BISULFATE 75 MG TAB PO SCH (10:00)
[2022-04-04] MEDS ORDERED: DOCUSATE SOD 100 MG CAP PO SCH (10:00)
[2022-04-04] MEDS ORDERED: ENOXAPARIN SOD 60 MG/0.6 ML SYRINGE SC SCH ×2 (10:00)
[2022-04-04] MEDS: DOCUSATE SOD 100 MG CAP PO SCH (10:00)
[2022-04-04] MEDS: ASPirin 81 mg TAB PO SCH (10:27)
[2022-04-04] MEDS: CARVEDILOL 3.125 MG TAB PO SCH ×2 (10:28→22:00)
[2022-04-04] MEDS: LISINOPRIL 5 MG TAB PO SCH (10:28)
[2022-04-04] MEDS ORDERED: SERT50TA19 PO (10:35)
[2022-04-04] MEDS: ACETAMINOPHEN 325 MG TAB PO PRN ×2 (10:58→20:19)
[2022-04-04 12:59] VITALS: BP 189/73
[2022-04-04] MEDS: cloNIDine HCL 0.1 MG TAB PO PRN (13:23)
[2022-04-04 17:00] VITALS: BP 176/69
[2022-04-04] MEDS: hydrALAZINE HCL 20 MG/ML VL IV PRN (18:11)
[2022-04-04 20:00] VITALS: BP 131/55
[2022-04-04 22:00] VITALS: BP 131/55
[2022-04-04] MEDS: ATORVASTATIN 20 MG TAB PO SCH (22:14)
[2022-04-05 05:00] VITALS: BP 111/51
[2022-04-05 09:00] VITALS: BP 180/64
[2022-04-05] MEDS: ASPirin 81 mg TAB PO SCH (11:12)
[2022-04-05] MEDS: ACETAMINOPHEN 325 MG TAB PO PRN ×2 (11:12→19:32)
[2022-04-05] MEDS: LISINOPRIL 5 MG TAB PO SCH (11:13)
[2022-04-05] MEDS: CARVEDILOL 3.125 MG TAB PO SCH (11:13)
[2022-04-05] MEDS: DOCUSATE SOD 100 MG CAP PO SCH (11:14)
[2022-04-05] MEDS ORDERED: ENOXAPARIN SOD 100 MG/1 ML SYRINGE SC ONE (12:15)
[2022-04-05] MEDS ORDERED: ENOXAPARIN SOD 80 MG/0.8ML SYRINGE SC ONE (12:45)
[2022-04-05 13:00] VITALS: BP 178/64
[2022-04-05 17:00] VITALS: BP 120/75
[2022-04-05 22:00] VITALS: BP 186/70
[2022-04-05] MEDS: ATORVASTATIN 20 MG TAB PO SCH (22:15)
[2022-04-05] MEDS: ENOXAPARIN SOD 80 MG/0.8ML SYRINGE SC SCH (22:15)
[2022-04-05] MEDS: hydrALAZINE HCL 20 MG/ML VL IV PRN (22:16)
[2022-04-05 23:00] VITALS: BP 160/65
[2022-04-06] MEDS: cloNIDine HCL 0.1 MG TAB PO PRN (01:58)
[2022-04-06 05:36] VITALS: BP 142/55
[2022-04-06 06:22] LABS: Magnesium 1.8 mg/dL (1.6-2.6)
[2022-04-06] MEDS ORDERED: ADENOSINE 51 MG in GIVE UN-DILUTED 0 ML IV STA (08:28)
[2022-04-06 09:05] VITALS: BP 166/60
[2022-04-06] MEDS: ENOXAPARIN SOD 80 MG/0.8ML SYRINGE SC SCH (09:30)
[2022-04-06] MEDS: ASPirin 81 mg TAB PO SCH (09:31)
[2022-04-06] MEDS: DOCUSATE SOD 100 MG CAP PO SCH (09:31)
[2022-04-06] MEDS: LISINOPRIL 5 MG TAB PO SCH (09:32)
[2022-04-06] MEDS ORDERED: METOPROLOL SUCCINATE XL 50 MG TAB PO SCH (10:00)
[2022-04-06] MEDS ORDERED: APIXABAN 5 MG TAB PO SCH (22:00)
== END 2022-04-06 15:10 | disposition home or self-care (01) | DRG 302 ==
LOC: ER 01:07 → EDBD 01:07 → TELE 05:31 → TELE-EAST 09:21
PROVIDERS: ADMIT Hospitalist; ATTEND Family Medicine
DX: I25.10 Atherosclerotic heart disease of native coronary artery without angina pectoris (principal); E43 Unspecified severe protein-calorie malnutrition; I50.33 Acute on chronic diastolic (congestive) heart failure; N17.0 Acute kidney failure with tubular necrosis; Q21.1 Atrial septal defect; I11.0 Hypertensive heart disease with heart failure; D63.8 Anemia in other chronic diseases classified elsewhere; E11.21 Type 2 diabetes mellitus with diabetic nephropathy; E11.40 Type 2 diabetes mellitus with diabetic neuropathy, unspecified; I48.0 Paroxysmal atrial fibrillation; E78.5 Hyperlipidemia, unspecified; Z20.822 Contact with and (suspected) exposure to COVID-19; I27.20 Pulmonary hypertension, unspecified; I25.5 Ischemic cardiomyopathy; Z82.49 Family history of ischemic heart disease and other diseases of the circulatory system; Z79.01 Long term (current) use of anticoagulants; I25.2 Old myocardial infarction; Z68.22 Body mass index [BMI] 22.0-22.9, adult; Z83.3 Family history of diabetes mellitus; Z85.41 Personal history of malignant neoplasm of cervix uteri; Z86.16 Personal history of COVID-19; Z87.01 Personal history of pneumonia (recurrent); Z90.710 Acquired absence of both cervix and uterus; Z95.1 Presence of aortocoronary bypass graft; Z95.2 Presence of prosthetic heart valve; Z95.5 Presence of coronary angioplasty implant and graft; Z90.49 Acquired absence of other specified parts of digestive tract
CPT/HCPCS: 36415; 71045; 80048; 80053; 80061; 83036; 83735; 83880; 84443; 84484; 85025; 93005; 93306; 96360; 96372; G0378; J0153

== ENCOUNTER 2023-09-09 11:04 | Inpatient (IN) | payer MEDICARE, OTHER ==
[~2023-09-09] VITALS: Ht 167.6 cm; Wt 68.0 kg
[~2023-09-09 11:04] MED LIST changes: +SERT-206 PO
[2023-09-09 11:40] VITALS: PULSE 52; RESP 14; O2SAT 100
[2023-09-09 13:09] LABS: Basophils # (auto) 0 10 ^3/uL (0-0.2); Basophils % (auto) 0.6 % (0.0-2.0); Eosinophils # (auto) 0.1 10 ^3/uL (0-0.8); Hemoglobin 10.8 g/dL (12.2-16.2); Lymphocytes # (auto) 0.7 10 ^3/uL (0.4-5.4); Monocytes # (auto) 0.2 10 ^3/uL (0-1.3); White Blood Cell 5.1 10^3/uL (4.4-10.8)
[2023-09-09 13:12] LABS: Eosinophils % (auto) 1.3 % (0.0-7.0); Hematocrit 32.3 % (36.0-46.0); Lymphocytes % (auto) 13.3 % (10.0-50.0); Mean Corpuscular Hemoglobin 35.6 pg (28.0-32.0); Mean Corpuscular Hgb Conc. 33.4 g/dL (32.0-36.0); Mean Corpuscular Volume 106.6 fL (80.0-100.0); Neutrophils # (auto) 4.2 10 ^3/uL (1.6-8.6); Neutrophils % (auto) 80.8 % (37.0-80.0); Nucleated Red Blood Cells % 0.1 %; Red Blood Cells 3.03 10^6/uL (4.0-5.20); Red Cell Distribution Width 16.2 % (11.8-14.3)
[2023-09-09 13:22] LABS: Urine Bacteria FEW /hpf (None Seen); Urine Blood Negative /uL (Negative); Urine Clarity HAZY (Clear); Urine Color Yellow (Yellow); Urine Hyaline Cast FEW /lpf (0 - 2); Urine Protein, UAD 1+ (Negative); Urine Specific Gravity 1.008 (1.001-1.035); Urine Urobilinogen Normal (Negative); Urine WBC 9 /hpf (0 - 5); Urine pH 5.5 (5.0-8.0)
[2023-09-09 13:40] LABS: Magnesium 2.1 mg/dL (1.6-2.6)
[2023-09-09] MEDS ORDERED: MORPHINE SULFATE INJ 2 MG/ml SYRG IV PRN (14:30)
[2023-09-09] MEDS ORDERED: NITROGLYCERIN 0.4 MG SL TAB SL PRN (14:30)
[2023-09-09] MEDS ORDERED: ALBUTEROL SULF 2.5 MG/0.5ML(0.5%) NEB SOLN NEB PRN (14:45)
[2023-09-09] MEDS ORDERED: DEXTROSE (50%) 50ML SYRG IV PRN (14:45)
[2023-09-09 14:51] LABS: Triglycerides 149 mg/dL (< 150)
[2023-09-09 14:52] LABS: LDL Cholesterol 77 mg/dL (< 100)
[2023-09-09 14:53] LABS: Cholesterol 146 mg/dL (< 200); HDL Cholesterol 47 mg/dL (40-59)
[2023-09-09 15:06] LABS: Chloride 108 mmol/L (98-107); Potassium 4.1 mmol/L (3.5-5.1); Sodium 136 mmol/L (136-145)
[2023-09-09 15:07] LABS: Anion Gap 8 (5-15); Calcium 10.1 mg/dL (8.5-10.1); Carbon Dioxide 20 mmol/L (20-30)
[2023-09-09 15:12] LABS: BUN/Creatinine Ratio 27.6 (10.0-20.0); Blood Urea Nitrogen 45 mg/dL (9-23); Glucose 137 mg/dL (74-106)
[2023-09-09] MEDS: InsuLIN REG 1unit/0.01ml Soln (100units/ml) SC SCH (17:35)
[2023-09-09] MEDS: glipiZIDE 5 MG TAB PO SCH (17:36)
[2023-09-09] MEDS: ACCU-CHEK COMFORT CURVE STRIP VI SCH (17:36)
[2023-09-09 19:30] VITALS: PULSE 60; RESP 60; O2SAT 100
[2023-09-09 19:38] VITALS: BP 128/48; PULSE 56; RESP 18; TEMP 98.1; O2SAT 99
[2023-09-09 21:02] LABS: COVID19 ANTIGEN SOFIA FIA NEGATIVE (NEGATIVE)
[2023-09-09] MEDS ORDERED: PATIENTS OWN MEDICATION (Glipizide 1 TAB) PO SCH (22:00)
[2023-09-09] MEDS: DONEPEZIL HYDROCHLORIDE 5 MG TAB PO SCH (22:15)
[2023-09-09 23:56] VITALS: BP 142/95; PULSE 65; RESP 16; RESP 17; TEMP 97.5; O2SAT 100
[2023-09-10] VITALS (9 sets, daily range): BP systolic 117–166; BP diastolic 54–74; PULSE 61–82; RESP 16–17; TEMP 97.5–98.2; O2SAT 97–100
[2023-09-10 05:41] LABS: Basophils # (auto) 0 10 ^3/uL (0-0.2); Eosinophils # (auto) 0 10 ^3/uL (0-0.8); Hemoglobin 10.5 g/dL (12.2-16.2); Lymphocytes # (auto) 0.8 10 ^3/uL (0.4-5.4); Monocytes # (auto) 0.3 10 ^3/uL (0-1.3); Nucleated Red Blood Cells % 0.1 %; Red Blood Cells 2.92 10^6/uL (4.0-5.20)
[2023-09-10 05:45] LABS: Basophils % (auto) 0.7 % (0.0-2.0); Eosinophils % (auto) 0.6 % (0.0-7.0); Hematocrit 30.8 % (36.0-46.0); Lymphocytes % (auto) 14.8 % (10.0-50.0); Mean Corpuscular Hemoglobin 35.9 pg (28.0-32.0); Mean Corpuscular Volume 105.6 fL (80.0-100.0); Monocytes % (auto) 5.9 % (0.0-12.0); Neutrophils # (auto) 4.4 10 ^3/uL (1.6-8.6); Red Cell Distribution Width 15.8 % (11.8-14.3); White Blood Cell 5.7 10^3/uL (4.4-10.8)
[2023-09-10 05:55] LABS: Alanine Aminotransferase 18 U/L (7-40); Alkaline Phosphatase 84 U/L (46-116); Anion Gap 8 (5-15); Blood Urea Nitrogen 46 mg/dL (9-23); Calcium 9.5 mg/dL (8.7-10.4); Carbon Dioxide 19 mmol/L (20-30); Chloride 108 mmol/L (98-107); Glucose 56 mg/dL (74-106); Potassium 3.6 mmol/L (3.5-5.1); Sodium 135 mmol/L (136-145)
[2023-09-10 05:56] LABS: Aspartate Aminotransferase 25 U/L (13-40); Bilirubin, Total 0.3 mg/dL (0.2-1.0); Total Protein 6.3 g/dL (5.7-8.2)
[2023-09-10] MEDS ORDERED: PYRI1TAB3 PO (07:52)
[2023-09-10] MEDS ORDERED: MULT-1018 PO (07:52)
[2023-09-10] MEDS ORDERED: GABA-1250 PO (07:52)
[2023-09-10] MEDS ORDERED: B COCAP12 PO (07:52)
[2023-09-10] MEDS ORDERED: FERR325T48 PO (07:52)
[2023-09-10] MEDS ORDERED: NIFE1TAB31 PO (07:52)
[2023-09-10] MEDS ORDERED: TRAZ-227 PO (07:52)
[2023-09-10] MEDS ORDERED: NITR0.4S29 SL (07:52)
[2023-09-10] MEDS ORDERED: ZINC220C8 PO (07:52)
[2023-09-10] MEDS ORDERED: CHOL100067 PO (07:52)
[2023-09-10] MEDS ORDERED: FERR325T24 PO (07:52)
[2023-09-10] MEDS ORDERED: ASCO500T11 PO (07:52)
[2023-09-10] MEDS ORDERED: TRIA0.1P2 TOP (07:53)
[2023-09-10] MEDS: SERTRALINE HCL 50 MG TAB PO SCH (08:54)
[2023-09-10] MEDS: ASPirin-EC 81 mg tab PO SCH (08:54)
[2023-09-10] MEDS: ATORVASTATIN 20 MG TAB PO SCH (08:54)
[2023-09-10] MEDS: ENOXAPARIN SOD 40 MG/0.4 ML SYRINGE SC SCH (08:57)
[2023-09-10] MEDS: LISINOPRIL 5 MG TAB PO SCH (08:57)
[2023-09-10] MEDS: FUROSEMIDE 40 MG TAB PO SCH (08:57)
[2023-09-10] MEDS ORDERED: PATIENTS OWN MEDICATION (Donepezil Hydrochloride (Donepezil Hcl) 1 TAB) PO SCH (10:00)
[2023-09-10] MEDS ORDERED: LORazepam 0.5 MG TAB PO PRN (13:00)
[2023-09-10] MEDS: cefTRIAXone 1GM/50ML D5W 50 ML IV ONE (16:37)
[2023-09-11] VITALS (10 sets, daily range): BP systolic 143–170; BP diastolic 52–98; PULSE 73–84; RESP 16–18; TEMP 97.5–98.5; O2SAT 97–100
[2023-09-11] MEDS: cefTRIAXone 1GM/50ML D5W 50 ML IV SCH (07:28)
[2023-09-11] MEDS: ENOXAPARIN SOD 30 MG/0.3 ML SYRINGE SC SCH (09:32)
[2023-09-11] MEDS: METOPROLOL TARTRATE 25 MG TAB PO ONE (14:37)
[2023-09-11] MEDS: METOPROLOL TARTRATE 25 MG TAB PO SCH (21:00)
[2023-09-11] MEDS: hydrALAZINE HCL 20 MG/ML VL IV PRN (21:00)
[2023-09-12] MEDS: ACETAMINOPHEN 325 MG TAB PO PRN (01:30)
[2023-09-12 05:00] VITALS: BP 145/59; PULSE 69; RESP 16; TEMP 97.9; O2SAT 98
[2023-09-12 08:00] VITALS: PULSE 90
[2023-09-12 08:38] VITALS: BP 165/77; PULSE 81; RESP 18; TEMP 98.3; O2SAT 96
[2023-09-12 13:00] VITALS: BP_SYST 139; BP_SYST 151; BP_SYST 161; BP_DIAS 70; BP_DIAS 79; PULSE 61; PULSE 65; PULSE 74; RESP 16; RESP 18; TEMP 97.6; O2SAT 100; O2SAT 96; O2SAT 99
[2023-09-12] MEDS ORDERED: ALLO100T PO (13:41)
[2023-09-12 14:15] VITALS: BP 117/44; PULSE 69; RESP 16
[2023-09-12 14:32] VITALS: BP 117/44; PULSE 69
== END 2023-09-12 15:35 | disposition home or self-care (01) | DRG 871 ==
LOC: ER 11:04 → EDUNIT# 11:04 → EDBD 11:04 → TELE 14:29 → TELE-CENTR 22:18 → TELE-WESTW 09-11 21:13
PROVIDERS: ADMIT Nurse Practitioner Family; ATTEND Family Medicine
DX: A41.9 Sepsis, unspecified organism (principal); I50.43 Acute on chronic combined systolic (congestive) and diastolic (congestive) heart failure; N39.0 Urinary tract infection, site not specified; I48.20 Chronic atrial fibrillation, unspecified; R00.1 Bradycardia, unspecified; K52.9 Noninfective gastroenteritis and colitis, unspecified; I11.0 Hypertensive heart disease with heart failure; Z20.822 Contact with and (suspected) exposure to COVID-19; E11.65 Type 2 diabetes mellitus with hyperglycemia; I65.23 Occlusion and stenosis of bilateral carotid arteries; I48.0 Paroxysmal atrial fibrillation; Z96.651 Presence of right artificial knee joint; Z95.3 Presence of xenogenic heart valve; Z83.3 Family history of diabetes mellitus; Z82.49 Family history of ischemic heart disease and other diseases of the circulatory system; Z90.710 Acquired absence of both cervix and uterus; Z98.61 Coronary angioplasty status; I25.2 Old myocardial infarction; Z90.49 Acquired absence of other specified parts of digestive tract; Z85.42 Personal history of malignant neoplasm of other parts of uterus; Z81.8 Family history of other mental and behavioral disorders
CPT/HCPCS: 36415; 70450; 74176; 76775; 80048; 80053; 80061; 81001; 82140; 82962; 83036; 83605; 83690; 83735; 83880; 84443; 84484; 85025; 87040; 87086; 87088; 87186; 87426; 87493; 93306; 93886; 97110; 97116; 97163; 97530; 99291; G0378; J1815

== ENCOUNTER 2023-11-27 14:46 | Inpatient (IN) | payer OTHER ==
[~2023-11-27] VITALS: Ht 167.6 cm; Wt 66.0 kg
[~2023-11-27 14:46] MED LIST changes: +ALLO100T PO; +ASCO500T11 PO; +B COCAP12 PO; +CEPH250C PO; +CHOL100067 PO; +FERR325T24 PO; +FERR325T48 PO; +GABA-1250 PO; -GLIP10TA9 PO; -LORA2CON5 PO; +MULT-1018 PO; +NIFE1TAB31 PO; +NITR0.4S29 SL; -POTA-264 PO; +PYRI1TAB3 PO; +TRAZ-227 PO; +TRIA0.1P2 TOP; +ZINC220C8 PO
[2023-11-27 16:07] LABS: Basophils # (auto) 0 10 ^3/uL (0-0.2); Eosinophils # (auto) 0.1 10 ^3/uL (0-0.8); Eosinophils % (auto) 1.8 % (0.0-7.0); Hematocrit 20.2 % (36.0-46.0); Lymphocytes # (auto) 1.2 10 ^3/uL (0.4-5.4); Monocytes # (auto) 0.3 10 ^3/uL (0-1.3); Nucleated Red Blood Cells % 0.1 %; Red Blood Cells 1.85 10^6/uL (4.0-5.20); White Blood Cell 3.6 10^3/uL (4.4-10.8)
[2023-11-27 16:08] LABS: Basophils % (auto) 1.1 % (0.0-2.0); Lymphocytes % (auto) 32.2 % (10.0-50.0); Mean Corpuscular Hemoglobin 35.5 pg (28.0-32.0); Mean Corpuscular Hgb Conc. 32.5 g/dL (32.0-36.0); Mean Corpuscular Volume 109.5 fL (80.0-100.0); Neutrophils # (auto) 2.1 10 ^3/uL (1.6-8.6); Neutrophils % (auto) 56.9 % (37.0-80.0); Red Cell Distribution Width 15.6 % (11.8-14.3)
[2023-11-27 16:16] LABS: Hemoglobin 6.6 g/dL (12.2-16.2)
[2023-11-27 16:25] LABS: Alanine Aminotransferase 21 U/L (7-40); Albumin 3.6 g/dL (3.2-4.8); Alkaline Phosphatase 58 U/L (46-116); Anion Gap 7 (5-15); Aspartate Aminotransferase 15 U/L (13-40); BUN/Creatinine Ratio 51.7 (10.0-20.0); Blood Urea Nitrogen 77 mg/dL (9-23); Calcium 9.7 mg/dL (8.7-10.4); Carbon Dioxide 21 mmol/L (20-30); Chloride 108 mmol/L (98-107); Glucose 170 mg/dL (74-106); Sodium 136 mmol/L (136-145)
[2023-11-27 16:26] LABS: Bilirubin, Total 0.2 mg/dL (0.2-1.0); Total Protein 5.7 g/dL (5.7-8.2)
[2023-11-27 16:38] LABS: INR 1.01 (0.9-1.15); Partial Thromboplastin Time 23.1 SEC (24.5-34.5); Prothrombin Time 10.7 sec (9.3-11.8)
[2023-11-27] MEDS: SODIUM CHLORIDE 0.9% 1,000 ML IV ONE (17:23)
[2023-11-27 17:26] LABS: % Iron Saturation 36.1 % (15-50)
[2023-11-27] MEDS ORDERED: DEXTROSE (50%) 50ML SYRG IV PRN (18:45)
[2023-11-27 21:44] LABS: Urine Bacteria FEW /hpf (None Seen); Urine Blood Negative /uL (Negative); Urine Clarity Clear (Clear); Urine Color Light-Yellow (Yellow); Urine Protein, UAD TRACE (Negative); Urine Urobilinogen Normal (Negative); Urine WBC 1 /hpf (0 - 5)
[2023-11-27] MEDS: InsuLIN REG 1unit/0.01ml Soln (100units/ml) SC SCH (22:00)
[2023-11-27] MEDS: DONEPEZIL HYDROCHLORIDE 5 MG TAB PO SCH (22:00)
[2023-11-27] MEDS: GABAPENTIN 300 MG CAP PO SCH (22:00)
[2023-11-27] MEDS: METOPROLOL TARTRATE 25 MG TAB PO SCH (22:00)
[2023-11-27] MEDS: ATORVASTATIN 20 MG TAB PO SCH (22:00)
[2023-11-27] MEDS: ACCU-CHEK COMFORT CURVE STRIP VI SCH (22:00)
[2023-11-27 22:59] VITALS: O2SAT 98
[2023-11-27 23:48] VITALS: BP 136/49; PULSE 57; RESP 18; TEMP 98.6; O2SAT 99
[2023-11-28] VITALS (11 sets, daily range): BP systolic 114–146; BP diastolic 46–73; PULSE 51–78; RESP 17–20; TEMP 97.5–98.2; O2SAT 94–100
[2023-11-28 06:13] LABS: Chloride 111 mmol/L (98-107); Sodium 139 mmol/L (136-145)
[2023-11-28 06:14] LABS: Anion Gap 9 (5-15); Basophils # (auto) 0 10 ^3/uL (0-0.2); Basophils % (auto) 0.9 % (0.0-2.0); Calcium 9.3 mg/dL (8.7-10.4); Carbon Dioxide 19 mmol/L (20-30); Eosinophils # (auto) 0.1 10 ^3/uL (0-0.8); Hemoglobin 7.5 g/dL (12.2-16.2); Monocytes # (auto) 0.3 10 ^3/uL (0-1.3); White Blood Cell 4.1 10^3/uL (4.4-10.8)
[2023-11-28 06:16] LABS: Eosinophils % (auto) 2.1 % (0.0-7.0); Lymphocytes # (auto) 1.4 10 ^3/uL (0.4-5.4); Mean Corpuscular Hemoglobin 34.6 pg (28.0-32.0); Mean Corpuscular Hgb Conc. 32.7 g/dL (32.0-36.0); Mean Corpuscular Volume 105.6 fL (80.0-100.0); Monocytes % (auto) 7.5 % (0.0-12.0); Neutrophils # (auto) 2.3 10 ^3/uL (1.6-8.6); Neutrophils % (auto) 56.5 % (37.0-80.0); Nucleated Red Blood Cells % 0.2 %; Red Blood Cells 2.18 10^6/uL (4.0-5.20); Red Cell Distribution Width 19.9 % (11.8-14.3)
[2023-11-28 06:19] LABS: BUN/Creatinine Ratio 49.2 (10.0-20.0); Glucose 132 mg/dL (74-106)
[2023-11-28 06:30] LABS: Blood Urea Nitrogen 63 mg/dL (9-23)
[2023-11-28] MEDS: PANTOPRAZOLE 40 MG/10 ML VIAL INJ IV SCH (09:33)
[2023-11-28] MEDS: DOCUSATE SOD 100 MG CAP PO SCH (09:34)
[2023-11-28] MEDS: LISINOPRIL 5 MG TAB PO SCH (09:34)
[2023-11-28] MEDS: NIFEdipine ER 30 MG TAB PO SCH (09:34)
[2023-11-28] MEDS: FUROSEMIDE 40 MG TAB PO SCH (09:34)
[2023-11-28] MEDS: FERROUS SULFATE 325mg EC TAB PO SCH (09:35)
[2023-11-28 11:15] LABS: Folate (Folic Acid) 44.06 ng/mL (>5.38)
[2023-11-28] MEDS: PANCREATIC ENZYMES 4200 UNIT CAP PO ONE ×2 (19:15→22:32)
[2023-11-28] MEDS: SERTRALINE HCL 50 MG TAB PO SCH (22:03)
[2023-11-29] VITALS (8 sets, daily range): BP systolic 98–146; BP diastolic 28–94; PULSE 53–74; RESP 16–19; TEMP 96.5–98.1; O2SAT 97–100
[2023-11-29 06:01] LABS: Eosinophils # (auto) 0.1 10 ^3/uL (0-0.8); Hemoglobin 7.4 g/dL (12.2-16.2); Lymphocytes # (auto) 1.1 10 ^3/uL (0.4-5.4); Monocytes # (auto) 0.4 10 ^3/uL (0-1.3); Neutrophils # (auto) 2.2 10 ^3/uL (1.6-8.6); Nucleated Red Blood Cells % 0.1 %; White Blood Cell 3.9 10^3/uL (4.4-10.8)
[2023-11-29 06:05] LABS: Basophils # (auto) 0.1 10 ^3/uL (0-0.2); Basophils % (auto) 1.3 % (0.0-2.0); Eosinophils % (auto) 3.5 % (0.0-7.0); Hematocrit 22.2 % (36.0-46.0); Lymphocytes % (auto) 27.8 % (10.0-50.0); Mean Corpuscular Hemoglobin 34.8 pg (28.0-32.0); Mean Corpuscular Hgb Conc. 33.4 g/dL (32.0-36.0); Mean Corpuscular Volume 104.1 fL (80.0-100.0); Monocytes % (auto) 10.5 % (0.0-12.0); Neutrophils % (auto) 56.9 % (37.0-80.0); Red Blood Cells 2.13 10^6/uL (4.0-5.20)
[2023-11-29 06:14] LABS: Chloride 110 mmol/L (98-107); Potassium 4.3 mmol/L (3.5-5.1); Sodium 140 mmol/L (136-145)
[2023-11-29 06:15] LABS: Anion Gap 7 (5-15); Calcium 9.8 mg/dL (8.7-10.4); Carbon Dioxide 23 mmol/L (20-30)
[2023-11-29 06:20] LABS: BUN/Creatinine Ratio 47.7 (10.0-20.0); Blood Urea Nitrogen 61 mg/dL (9-23); Glucose 152 mg/dL (74-106)
[2023-11-29] MEDS: PANCREATIC ENZYMES 4200 UNIT CAP PO SCH (09:39)
[2023-11-30] VITALS (7 sets, daily range): BP systolic 126–170; BP diastolic 39–60; PULSE 53–71; RESP 18–20; TEMP 97.7–98; O2SAT 97–100
[2023-11-30 07:02] LABS: Alanine Aminotransferase 22 U/L (7-40); Albumin 3.8 g/dL (3.2-4.8); Alkaline Phosphatase 63 U/L (46-116); Anion Gap 7 (5-15); Aspartate Aminotransferase 17 U/L (13-40); BUN/Creatinine Ratio 37.8 (10.0-20.0); Bilirubin, Total 0.3 mg/dL (0.2-1.0); Blood Urea Nitrogen 54 mg/dL (9-23); Calcium 9.7 mg/dL (8.7-10.4); Carbon Dioxide 24 mmol/L (20-30); Chloride 107 mmol/L (98-107); Glucose 164 mg/dL (74-106); Potassium 4.1 mmol/L (3.5-5.1); Sodium 138 mmol/L (136-145); Total Protein 5.8 g/dL (5.7-8.2)
[2023-11-30 07:04] LABS: Basophils # (auto) 0 10 ^3/uL (0-0.2); Eosinophils # (auto) 0.1 10 ^3/uL (0-0.8); Hemoglobin 7.7 g/dL (12.2-16.2); Lymphocytes # (auto) 1.4 10 ^3/uL (0.4-5.4); Mean Corpuscular Hemoglobin 34.6 pg (28.0-32.0); Monocytes # (auto) 0.4 10 ^3/uL (0-1.3); Monocytes % (auto) 9.7 % (0.0-12.0); Neutrophils # (auto) 2.4 10 ^3/uL (1.6-8.6); White Blood Cell 4.4 10^3/uL (4.4-10.8)
[2023-11-30 07:06] LABS: Basophils % (auto) 0.9 % (0.0-2.0); Eosinophils % (auto) 2.2 % (0.0-7.0); Lymphocytes % (auto) 32.6 % (10.0-50.0); Mean Corpuscular Hgb Conc. 33.3 g/dL (32.0-36.0); Mean Corpuscular Volume 103.7 fL (80.0-100.0); Neutrophils % (auto) 54.6 % (37.0-80.0); Red Blood Cells 2.21 10^6/uL (4.0-5.20)
[2023-11-30 07:12] LABS: Red Cell Distribution Width 20.1 % (11.8-14.3)
[2023-11-30] MEDS ORDERED: PANT40T PO (11:41)
[2023-11-30] MEDS ORDERED: PANC3000 PO (13:44)
[2023-11-30] MEDS: hydrALAZINE HCL 20 MG/ML VL IV PRN (17:04)
== END 2023-11-30 17:55 | disposition home or self-care (01) | DRG 377 ==
LOC: ER 14:46 → TELE 18:16 → TELE-WESTW 22:43
PROVIDERS: ADMIT Internal Medicine Pulmonary Disease; ATTEND Internal Medicine Pulmonary Disease
PROC: 30233N1 Transfusion of Nonautologous Red Blood Cells into Peripheral Vein, Percutaneous Approach (ICD-10-PCS; principal; 2023-11-28)
DX: K92.2 Gastrointestinal hemorrhage, unspecified (principal); N17.0 Acute kidney failure with tubular necrosis; K86.1 Other chronic pancreatitis; K90.9 Intestinal malabsorption, unspecified; I50.32 Chronic diastolic (congestive) heart failure; I13.0 Hypertensive heart and chronic kidney disease with heart failure and stage 1 through stage 4 chronic kidney disease, or unspecified chronic kidney disease; D53.9 Nutritional anemia, unspecified; I48.0 Paroxysmal atrial fibrillation; I25.10 Atherosclerotic heart disease of native coronary artery without angina pectoris; E11.22 Type 2 diabetes mellitus with diabetic chronic kidney disease; K52.9 Noninfective gastroenteritis and colitis, unspecified; N18.9 Chronic kidney disease, unspecified; F03.90 Unspecified dementia, unspecified severity, without behavioral disturbance, psychotic disturbance, mood disturbance, and anxiety; I44.7 Left bundle-branch block, unspecified; Z79.899 Other long term (current) drug therapy; Z83.3 Family history of diabetes mellitus; Z90.49 Acquired absence of other specified parts of digestive tract; Z95.3 Presence of xenogenic heart valve; Z85.42 Personal history of malignant neoplasm of other parts of uterus; Z90.710 Acquired absence of both cervix and uterus; Z95.5 Presence of coronary angioplasty implant and graft
CPT/HCPCS: 36415; 71045; 74176; 80048; 80053; 81001; 82270; 82607; 82728; 82746; 82962; 83540; 83550; 83605; 83615; 83735; 83880; 84443; 84484; 85025; 85045; 85610; 85730; 86850; 86900; 86901; 86920; 87040; 87045; 87427; 87493; 93005; C9113; G0378; J1815

== ENCOUNTER 2024-03-04 14:18 | Inpatient (IN) | payer OTHER ==
[~2024-03-04] VITALS: Ht 167.6 cm; Wt 70.3 kg
[~2024-03-04 14:18] MED LIST changes: -ASCO500T11 PO; -ATOR20TA50 PO; -FERR325T24 PO; -MULT-1018 PO; +PANC3000 PO; +PANT40T PO; -TRIA0.1P2 TOP
[2024-03-04] MEDS: SODIUM CHLORIDE 0.9% 1,000 ML IV ONE (15:01)
[2024-03-04] MEDS: DOCUSATE SOD 100 MG CAP PO ONE (15:01)
[2024-03-04 15:40] LABS: Eosinophils # (auto) 0.1 10 ^3/uL (0-0.8); Lymphocytes # (auto) 1.2 10 ^3/uL (0.4-5.4); Monocytes # (auto) 0.3 10 ^3/uL (0-1.3); Nucleated Red Blood Cells % 0.1 %
[2024-03-04 15:43] LABS: Basophils # (auto) 0 10 ^3/uL (0-0.2); Basophils % (auto) 0.8 % (0.0-2.0); Eosinophils % (auto) 2.9 % (0.0-7.0); Hematocrit 30.2 % (36.0-46.0); Hemoglobin 10.1 g/dL (12.2-16.2); Lymphocytes % (auto) 28.1 % (10.0-50.0); Mean Corpuscular Hgb Conc. 33.3 g/dL (32.0-36.0); Mean Corpuscular Volume 107.9 fL (80.0-100.0); Monocytes % (auto) 7.7 % (0.0-12.0); Neutrophils # (auto) 2.6 10 ^3/uL (1.6-8.6); Neutrophils % (auto) 60.5 % (37.0-80.0); Platelet Count (auto) 175 10^3/uL (140-450); Red Cell Distribution Width 15.5 % (11.8-14.3); White Blood Cell 4.3 10^3/uL (4.4-10.8)
[2024-03-04 15:50] LABS: Urine Bacteria None Seen /hpf (None Seen)
[2024-03-04 15:52] LABS: Chloride 109 mmol/L (98-107); Potassium 4.7 mmol/L (3.5-5.1); Sodium 139 mmol/L (136-145)
[2024-03-04 15:53] LABS: Anion Gap 5 (5-15); Carbon Dioxide 25 mmol/L (20-30)
[2024-03-04 15:54] LABS: Calcium 9.9 mg/dL (8.7-10.4)
[2024-03-04 15:59] LABS: BUN/Creatinine Ratio 23.2 (10.0-20.0); Blood Urea Nitrogen 36 mg/dL (9-23); Glucose 109 mg/dL (74-106)
[2024-03-04 16:01] LABS: Urine Blood Negative /uL (Negative); Urine Clarity Clear (Clear); Urine Color Yellow (Yellow); Urine Protein, UAD 1+ (Negative); Urine Specific Gravity 1.011 (1.001-1.035); Urine Urobilinogen Normal (Negative); Urine WBC 12 /hpf (0 - 5); Urine pH 5.5 (5.0-9.0)
[2024-03-04] MEDS: MORPHINE SULFATE INJ 2 MG/ml SYRG IV ONE (17:29)
[2024-03-04] MEDS: ONDANSETRON HCL 4 MG/2 ML VIAL IV ONE (17:29)
[2024-03-04] MEDS ORDERED: MORPHINE SULFATE INJ 2 MG/ml SYRG IV PRN (17:45)
[2024-03-04] MEDS ORDERED: HYDROcodone-ACET 5/325MG TAB PO PRN (17:45)
[2024-03-04] MEDS ORDERED: ONDANSETRON HCL 4 MG/2 ML VIAL IV PRN (17:45)
[2024-03-04] MEDS ORDERED: ACETAMINOPHEN 325 MG TAB PO PRN (17:45)
[2024-03-04] MEDS ORDERED: DEXTROSE (50%) 50ML SYRG IV PRN (17:45)
[2024-03-04] MEDS ORDERED: LACTULOSE 20Gm/30ML SOLN PO PRN (17:45)
[2024-03-04] MEDS ORDERED: traZODone HCL 50 MG TAB PO PRN (17:45)
[2024-03-04 18:15] LABS: Triglycerides 133 mg/dL (< 150)
[2024-03-04 18:16] LABS: LDL Cholesterol 81 mg/dL (< 100)
[2024-03-04 18:17] LABS: Cholesterol 148 mg/dL (< 200); HDL Cholesterol 44 mg/dL (40-59)
[2024-03-04] MEDS: PANTOPRAZOLE 40 MG/10 ML VIAL INJ IV ONE (18:48)
[2024-03-04] MEDS: SODIUM CHLORIDE 0.9% 1,000 ML IV SCH (18:48)
[2024-03-04] MEDS ORDERED: hydrALAZINE HCL 20 MG/ML VL IV PRN (19:00)
[2024-03-04 19:15] VITALS: PULSE 58; RESP 15; O2SAT 98
[2024-03-04] MEDS: LABETALOL HCL 20 MG/4 ML VL IV ONE (20:15)
[2024-03-04 21:30] VITALS: BP 120/69; PULSE 61; RESP 18; TEMP 97.7; O2SAT 100
[2024-03-04 21:32] VITALS: BP 120/69; PULSE 61; RESP 18; TEMP 97.7; O2SAT 100
[2024-03-04 21:45] VITALS: BP 120/69; PULSE 61; PULSE 62; RESP 16; RESP 18; TEMP 97.7; O2SAT 100
[2024-03-04 22:00] VITALS: BP 119/70; PULSE 59; RESP 18; TEMP 97.6; O2SAT 100
[2024-03-04] MEDS: InsuLIN REG 1unit/0.01ml Soln (100units/ml) SC SCH (22:00)
[2024-03-04] MEDS: METOPROLOL TARTRATE 25 MG TAB PO SCH (22:00)
[2024-03-04] MEDS: FERROUS GLUCONATE 324 MG PO SCH (22:00)
[2024-03-04] MEDS: DONEPEZIL HYDROCHLORIDE 5 MG TAB PO SCH (22:17)
[2024-03-04] MEDS: GABAPENTIN 300 MG CAP PO SCH (22:24)
[2024-03-04] MEDS: hydrALAZINE HCL 20 MG/ML VL IV PRN (22:42)
[2024-03-04] MEDS: ACCU-CHEK COMFORT CURVE STRIP VI SCH (22:49)
[2024-03-05] VITALS (8 sets, daily range): BP systolic 127–165; BP diastolic 53–68; PULSE 56–67; RESP 16–18; TEMP 97.6–98.6; O2SAT 94–100
[2024-03-05] MEDS: TEMAZEPAM 15 MG CAP PO ONE (01:45)
[2024-03-05 07:21] LABS: Basophils # (auto) 0 10 ^3/uL (0-0.2); Basophils % (auto) 0.8 % (0.0-2.0); Eosinophils # (auto) 0.1 10 ^3/uL (0-0.8); Lymphocytes # (auto) 1.2 10 ^3/uL (0.4-5.4); Mean Corpuscular Hgb Conc. 33.5 g/dL (32.0-36.0); Monocytes # (auto) 0.3 10 ^3/uL (0-1.3); White Blood Cell 4.7 10^3/uL (4.4-10.8)
[2024-03-05 07:26] LABS: Eosinophils % (auto) 2.4 % (0.0-7.0); Hematocrit 32.5 % (36.0-46.0); Hemoglobin 10.9 g/dL (12.2-16.2); Lymphocytes % (auto) 25.6 % (10.0-50.0); Mean Corpuscular Hemoglobin 36.2 pg (28.0-32.0); Mean Corpuscular Volume 107.9 fL (80.0-100.0); Monocytes % (auto) 7.3 % (0.0-12.0); Neutrophils % (auto) 63.9 % (37.0-80.0); Nucleated Red Blood Cells % 0.1 %; Platelet Count (auto) 176 10^3/uL (140-450); Red Blood Cells 3.01 10^6/uL (4.0-5.20); Red Cell Distribution Width 15.3 % (11.8-14.3)
[2024-03-05 07:51] LABS: Alanine Aminotransferase 16 U/L (7-40); Alkaline Phosphatase 72 U/L (46-116); Anion Gap 9 (5-15); BUN/Creatinine Ratio 21.5 (10.0-20.0); Blood Urea Nitrogen 29 mg/dL (9-23); Calcium 10.1 mg/dL (8.7-10.4); Carbon Dioxide 23 mmol/L (20-30); Chloride 108 mmol/L (98-107); Glucose 125 mg/dL (74-106); Potassium 4.1 mmol/L (3.5-5.1); Sodium 140 mmol/L (136-145)
[2024-03-05 07:52] LABS: Albumin 4.2 g/dL (3.2-4.8); Aspartate Aminotransferase 17 U/L (13-40)
[2024-03-05 07:53] LABS: Bilirubin, Total 0.4 mg/dL (0.2-1.0); Total Protein 6.4 g/dL (5.7-8.2)
[2024-03-05] MEDS: PANTOPRAZOLE 40 MG/10 ML VIAL INJ IV SCH (09:42)
[2024-03-05] MEDS: SERTRALINE HCL 50 MG TAB PO SCH (09:42)
[2024-03-05] MEDS: FUROSEMIDE 40 MG TAB PO SCH (09:43)
[2024-03-05] MEDS: ALLOPURINOL 100 MG TAB PO SCH (09:43)
[2024-03-05] MEDS: ASPirin-EC 81 mg tab PO SCH (09:44)
[2024-03-05] MEDS: LISINOPRIL 5 MG TAB PO SCH (09:44)
[2024-03-05] MEDS: NIFEdipine ER 30 MG TAB PO SCH (09:45)
[2024-03-05] MEDS: FLEET ENEMA(ADULT) 135 ML PR ONE (12:30)
[2024-03-05] MEDS: DOCUSATE SOD 100 MG CAP PO ONE (12:30)
[2024-03-05] MEDS ORDERED: hydrALAZINE HCL 20 MG/ML VL IV ONE (18:45)
[2024-03-05] MEDS: DOCUSATE SOD 100 MG CAP PO SCH (21:34)
[2024-03-05] MEDS: traZODone HCL 50 MG TAB PO SCH (21:35)
[2024-03-06 01:00] VITALS: BP 125/53; PULSE 57; RESP 17; TEMP 98.3; O2SAT 97
[2024-03-06 05:00] VITALS: BP 149/60; PULSE 54; RESP 16; TEMP 98.5; O2SAT 98
[2024-03-06 06:45] LABS: Anion Gap 6 (5-15); Carbon Dioxide 26 mmol/L (20-30); Chloride 107 mmol/L (98-107); Potassium 4.6 mmol/L (3.5-5.1); Sodium 139 mmol/L (136-145)
[2024-03-06 06:46] LABS: Calcium 10.2 mg/dL (8.7-10.4)
[2024-03-06 06:50] LABS: Glucose 105 mg/dL (74-106)
[2024-03-06 06:51] LABS: BUN/Creatinine Ratio 21.6 (10.0-20.0); Blood Urea Nitrogen 30 mg/dL (9-23)
[2024-03-06 08:00] VITALS: PULSE 62; RESP 16; O2SAT 98
[2024-03-06 08:46] VITALS: BP 116/62; PULSE 55; RESP 19; TEMP 98.4; O2SAT 98
[2024-03-06] MEDS ORDERED: SENN-153 PO (09:58)
[2024-03-06 13:05] VITALS: BP 116/62; PULSE 55; RESP 18; TEMP 36.9; O2SAT 97
[2024-03-06 13:11] VITALS: BP 144/67; PULSE 53; RESP 18; TEMP 98.3; O2SAT 99
== END 2024-03-06 15:00 | disposition home or self-care (01) | DRG 391 ==
LOC: EDBD 14:18 → ER 14:18 → OVERFLOW 17:36 → CENTRAL 21:30
PROVIDERS: ADMIT Internal Medicine Geriatric Medicine; ATTEND Emergency Medicine
DX: K59.00 Constipation, unspecified (principal); N17.0 Acute kidney failure with tubular necrosis; I13.0 Hypertensive heart and chronic kidney disease with heart failure and stage 1 through stage 4 chronic kidney disease, or unspecified chronic kidney disease; I50.32 Chronic diastolic (congestive) heart failure; E11.621 Type 2 diabetes mellitus with foot ulcer; L97.509 Non-pressure chronic ulcer of other part of unspecified foot with unspecified severity; I25.10 Atherosclerotic heart disease of native coronary artery without angina pectoris; F41.9 Anxiety disorder, unspecified; E11.22 Type 2 diabetes mellitus with diabetic chronic kidney disease; F32.A Depression, unspecified; I48.0 Paroxysmal atrial fibrillation; M10.9 Gout, unspecified; N18.9 Chronic kidney disease, unspecified; F03.90 Unspecified dementia, unspecified severity, without behavioral disturbance, psychotic disturbance, mood disturbance, and anxiety; D50.9 Iron deficiency anemia, unspecified; Z90.49 Acquired absence of other specified parts of digestive tract; Z85.42 Personal history of malignant neoplasm of other parts of uterus
CPT/HCPCS: 36415; 74176; 80048; 80053; 80061; 81001; 82306; 82607; 82962; 83036; 84443; 85025; 93005; G0378; J1815; J2405; J2470

== ENCOUNTER 2024-03-30 14:02 | Inpatient (IN) | payer OTHER ==
[~2024-03-30] VITALS: Ht 167.6 cm; Wt 70.7 kg
[~2024-03-30 14:02] MED LIST changes: +SENN-153 PO
[2024-03-30 15:27] LABS: Basophils # (auto) 0 10 ^3/uL (0-0.2); Basophils % (auto) 0.3 % (0.0-2.0); Eosinophils # (auto) 0.1 10 ^3/uL (0-0.8); Eosinophils % (auto) 1.5 % (0.0-7.0); Hematocrit 25.2 % (36.0-46.0); Hemoglobin 8.6 g/dL (12.2-16.2); Lymphocytes # (auto) 0.4 10 ^3/uL (0.4-5.4); Lymphocytes % (auto) 5.7 % (10.0-50.0); Mean Corpuscular Hemoglobin 36.8 pg (28.0-32.0); Mean Corpuscular Hgb Conc. 34.3 g/dL (32.0-36.0); Mean Corpuscular Volume 107.6 fL (80.0-100.0); Monocytes # (auto) 0.5 10 ^3/uL (0-1.3); Monocytes % (auto) 6.8 % (0.0-12.0); Neutrophils # (auto) 6.3 10 ^3/uL (1.6-8.6); Neutrophils % (auto) 85.7 % (37.0-80.0); Platelet Count (auto) 172 10^3/uL (140-450); Red Blood Cells 2.34 10^6/uL (4.0-5.20); Red Cell Distribution Width 15.6 % (11.8-14.3); White Blood Cell 7.4 10^3/uL (4.4-10.8)
[2024-03-30 15:42] LABS: Chloride 108 mmol/L (98-107); Potassium 4.5 mmol/L (3.5-5.1); Sodium 135 mmol/L (136-145)
[2024-03-30 15:43] LABS: Anion Gap 5 (5-15); Calcium 9.7 mg/dL (8.7-10.4); Carbon Dioxide 22 mmol/L (20-30)
[2024-03-30 15:48] LABS: BUN/Creatinine Ratio 35.1 (10.0-20.0); Blood Urea Nitrogen 68 mg/dL (9-23); Glucose 205 mg/dL (74-106)
[2024-03-30 16:03] VITALS: PULSE 62; RESP 15; O2SAT 97
[2024-03-30 16:08] LABS: Erythrocyte Sedimentation Rate 81 mm/hr (0-20)
[2024-03-30] MEDS: CLINDAMYCIN 600MG IV 50 ML IV ONE (17:02)
[2024-03-30] MEDS ORDERED: DEXTROSE (50%) 50ML SYRG IV PRN (17:15)
[2024-03-30] MEDS: ACCU-CHEK COMFORT CURVE STRIP VI SCH (18:09)
[2024-03-30] MEDS: InsuLIN REG 1unit/0.01ml Soln (100units/ml) SC SCH (18:19)
[2024-03-30] MEDS: cefTRIAXone 1GM/50ML D5W 50 ML IV ONE (18:22)
[2024-03-30] MEDS ORDERED: CEPH500C PO (20:21)
[2024-03-30 22:00] VITALS: BP 156/53; PULSE 70; RESP 20; TEMP 97.6; O2SAT 99
[2024-03-30] MEDS ORDERED: CLINDAMYCIN 600MG IV 50 ML IV SCH (22:00)
[2024-03-30] MEDS ORDERED: DONEPEZIL HYDROCHLORIDE 5 MG TAB PO SCH (22:00)
[2024-03-30] MEDS: DONEPEZIL HYDROCHLORIDE 5 MG TAB PO SCH (22:29)
[2024-03-31] VITALS (7 sets, daily range): BP systolic 123–167; BP diastolic 50–67; PULSE 58–74; RESP 16–19; TEMP 97.3–98.2; O2SAT 93–100
[2024-03-31] MEDS: CLINDAMYCIN 600MG IV 50 ML IV SCH (00:44)
[2024-03-31] MEDS: HYDROcodone-ACET 5/325MG TAB PO PRN (04:23)
[2024-03-31 06:36] LABS: Basophils # (auto) 0 10 ^3/uL (0-0.2); Eosinophils # (auto) 0.1 10 ^3/uL (0-0.8); Eosinophils % (auto) 2.2 % (0.0-7.0); Hemoglobin 7.9 g/dL (12.2-16.2); Lymphocytes # (auto) 0.6 10 ^3/uL (0.4-5.4); Monocytes # (auto) 0.5 10 ^3/uL (0-1.3)
[2024-03-31 06:40] LABS: Basophils % (auto) 0.4 % (0.0-2.0); Hematocrit 22.4 % (36.0-46.0); Lymphocytes % (auto) 9.4 % (10.0-50.0); Mean Corpuscular Hemoglobin 37.5 pg (28.0-32.0); Mean Corpuscular Hgb Conc. 35.2 g/dL (32.0-36.0); Mean Corpuscular Volume 106.4 fL (80.0-100.0); Monocytes % (auto) 8.6 % (0.0-12.0); Neutrophils # (auto) 4.7 10 ^3/uL (1.6-8.6); Neutrophils % (auto) 79.4 % (37.0-80.0); Platelet Count (auto) 171 10^3/uL (140-450); Red Blood Cells 2.11 10^6/uL (4.0-5.20); Red Cell Distribution Width 15.3 % (11.8-14.3); White Blood Cell 5.9 10^3/uL (4.4-10.8)
[2024-03-31 06:51] LABS: Alanine Aminotransferase 22 U/L (7-40); Alkaline Phosphatase 66 U/L (46-116); Anion Gap 6 (5-15); BUN/Creatinine Ratio 35.3 (10.0-20.0); Blood Urea Nitrogen 60 mg/dL (9-23); Calcium 9.5 mg/dL (8.7-10.4); Carbon Dioxide 21 mmol/L (20-30); Chloride 108 mmol/L (98-107); Glucose 121 mg/dL (74-106); Potassium 4.1 mmol/L (3.5-5.1); Sodium 135 mmol/L (136-145)
[2024-03-31 06:52] LABS: Albumin 3.5 g/dL (3.2-4.8); Aspartate Aminotransferase 14 U/L (13-40)
[2024-03-31 06:54] LABS: Bilirubin, Total 0.3 mg/dL (0.2-1.0); Total Protein 5.8 g/dL (5.7-8.2)
[2024-03-31] MEDS: cefTRIAXone 1GM/50ML D5W 50 ML IV SCH (08:54)
[2024-03-31] MEDS ORDERED: cefTRIAXone 1GM/50ML D5W 50 ML IV SCH (09:00)
[2024-03-31] MEDS: FUROSEMIDE 40 MG TAB PO SCH (09:09)
[2024-03-31] MEDS: amLODIPine BESYLATE 5 MG TAB PO SCH (09:09)
[2024-03-31] MEDS: SERTRALINE HCL 50 MG TAB PO SCH (09:10)
[2024-03-31] MEDS: NIFEdipine ER 30 MG TAB PO SCH (09:10)
[2024-03-31] MEDS ORDERED: SERTRALINE HCL 50 MG TAB PO SCH (10:00)
[2024-03-31] MEDS ORDERED: NIFEdipine ER 30 MG TAB PO SCH (10:00)
[2024-03-31] MEDS ORDERED: amLODIPine BESYLATE 5 MG TAB PO SCH (10:00)
[2024-03-31] MEDS ORDERED: FUROSEMIDE 40 MG TAB PO SCH (10:00)
[2024-03-31 16:27] LABS: % Iron Saturation 10.7 % (15-50)
[2024-04-01 01:00] VITALS: BP 145/62; PULSE 82; RESP 18; TEMP 97.7; O2SAT 97
[2024-04-01 05:00] VITALS: BP 142/72; PULSE 62; RESP 18; TEMP 97.9; O2SAT 96
[2024-04-01 06:14] LABS: Basophils # (auto) 0 10 ^3/uL (0-0.2); Eosinophils # (auto) 0.1 10 ^3/uL (0-0.8); Eosinophils % (auto) 2.1 % (0.0-7.0); Lymphocytes # (auto) 0.8 10 ^3/uL (0.4-5.4); Monocytes # (auto) 0.5 10 ^3/uL (0-1.3)
[2024-04-01 06:19] LABS: Basophils % (auto) 0.8 % (0.0-2.0); Hematocrit 24.6 % (36.0-46.0); Hemoglobin 8.5 g/dL (12.2-16.2); Lymphocytes % (auto) 13.3 % (10.0-50.0); Mean Corpuscular Hemoglobin 36.5 pg (28.0-32.0); Mean Corpuscular Hgb Conc. 34.5 g/dL (32.0-36.0); Mean Corpuscular Volume 105.8 fL (80.0-100.0); Neutrophils # (auto) 4.4 10 ^3/uL (1.6-8.6); Neutrophils % (auto) 74.8 % (37.0-80.0); Nucleated Red Blood Cells % 0.1 %; Platelet Count (auto) 198 10^3/uL (140-450); Red Blood Cells 2.32 10^6/uL (4.0-5.20); Red Cell Distribution Width 15.6 % (11.8-14.3); White Blood Cell 5.8 10^3/uL (4.4-10.8)
[2024-04-01 06:34] LABS: Alanine Aminotransferase 22 U/L (7-40); Albumin 3.4 g/dL (3.2-4.8); Alkaline Phosphatase 65 U/L (46-116); Anion Gap 4 (5-15); Aspartate Aminotransferase 13 U/L (13-40); BUN/Creatinine Ratio 35.2 (10.0-20.0); Bilirubin, Total 0.3 mg/dL (0.2-1.0); Blood Urea Nitrogen 51 mg/dL (9-23); Calcium 9.7 mg/dL (8.7-10.4); Carbon Dioxide 24 mmol/L (20-30); Chloride 107 mmol/L (98-107); Glucose 123 mg/dL (74-106); Magnesium 1.9 mg/dL (1.6-2.6); Potassium 4.4 mmol/L (3.5-5.1); Sodium 135 mmol/L (136-145); Total Protein 5.8 g/dL (5.7-8.2)
[2024-04-01 09:00] VITALS: BP 153/62; PULSE 63; RESP 17; TEMP 98.1; O2SAT 100
[2024-04-01 09:38] LABS: Protein, Urine 31.5 mg/dL (0.0-11.9)
[2024-04-01 09:41] LABS: Creatinine, Urine 28.44 mg/dL (30.0-125.0)
[2024-04-01] MEDS: FERROUS SULFATE 325mg EC TAB PO SCH (10:29)
[2024-04-01 13:00] VITALS: BP 139/40; PULSE 74; RESP 17; TEMP 98; O2SAT 98
[2024-04-01 17:00] VITALS: BP 126/52; PULSE 70; RESP 18; TEMP 97.9; O2SAT 93
[2024-04-01] MEDS: POLYETHYLENE GLYCOL 17 GM PWDR PO PRN (18:10)
[2024-04-01 21:00] VITALS: BP 128/52; PULSE 76; RESP 17; TEMP 97.9; O2SAT 97
[2024-04-01] MEDS: DOCUSATE SOD 100 MG CAP PO SCH (21:29)
[2024-04-02] VITALS (8 sets, daily range): BP systolic 127–151; BP diastolic 57–71; PULSE 62–78; RESP 15–20; TEMP 98–98.7; O2SAT 94–99
[2024-04-03] VITALS (8 sets, daily range): BP systolic 123–155; BP diastolic 57–79; PULSE 65–83; RESP 17–20; TEMP 97.4–98.5; O2SAT 95–99
[2024-04-03] MEDS: MORPHINE SULFATE INJ 2 MG/ml SYRG IM ONE (00:26)
[2024-04-03] MEDS: MORPHINE SULFATE INJ 2 MG/ml SYRG IV ONE (00:39)
[2024-04-03 08:07] LABS: Basophils # (auto) 0 10 ^3/uL (0-0.2); Eosinophils # (auto) 0.1 10 ^3/uL (0-0.8); Lymphocytes # (auto) 0.7 10 ^3/uL (0.4-5.4); Monocytes # (auto) 0.5 10 ^3/uL (0-1.3)
[2024-04-03 08:13] LABS: Basophils % (auto) 0.7 % (0.0-2.0); Eosinophils % (auto) 1.3 % (0.0-7.0); Hematocrit 24.9 % (36.0-46.0); Hemoglobin 8.7 g/dL (12.2-16.2); Lymphocytes % (auto) 12.5 % (10.0-50.0); Mean Corpuscular Hemoglobin 36.9 pg (28.0-32.0); Mean Corpuscular Volume 105.2 fL (80.0-100.0); Neutrophils # (auto) 4.4 10 ^3/uL (1.6-8.6); Neutrophils % (auto) 76.5 % (37.0-80.0); Platelet Count (auto) 254 10^3/uL (140-450); Red Blood Cells 2.37 10^6/uL (4.0-5.20); Red Cell Distribution Width 14.8 % (11.8-14.3); White Blood Cell 5.8 10^3/uL (4.4-10.8)
[2024-04-03 08:33] LABS: Anion Gap 5 (5-15); Carbon Dioxide 27 mmol/L (20-30); Chloride 106 mmol/L (98-107); Potassium 3.9 mmol/L (3.5-5.1); Sodium 138 mmol/L (136-145)
[2024-04-03 08:35] LABS: Calcium 9.9 mg/dL (8.7-10.4)
[2024-04-03 08:38] LABS: Glucose 99 mg/dL (74-106)
[2024-04-03 08:39] LABS: BUN/Creatinine Ratio 30.5 (10.0-20.0); Blood Urea Nitrogen 36 mg/dL (9-23)
[2024-04-03] MEDS: ACETAMINOPHEN 325 MG TAB PO PRN (16:20)
[2024-04-03] MEDS: ONDANSETRON HCL 4 MG/2 ML VIAL IV PRN (16:20)
[2024-04-03] MEDS: traZODone HCL 50 MG TAB PO SCH (22:09)
[2024-04-04] VITALS (9 sets, daily range): BP systolic 107–152; BP diastolic 40–63; PULSE 60–81; RESP 16–18; TEMP 97.5–98.9; O2SAT 93–100
[2024-04-04 05:30] LABS: Basophils # (auto) 0 10 ^3/uL (0-0.2); Eosinophils # (auto) 0.1 10 ^3/uL (0-0.8); Monocytes # (auto) 0.5 10 ^3/uL (0-1.3); Neutrophils # (auto) 3.3 10 ^3/uL (1.6-8.6); White Blood Cell 4.9 10^3/uL (4.4-10.8)
[2024-04-04 05:33] LABS: Basophils % (auto) 0.9 % (0.0-2.0); Eosinophils % (auto) 1.8 % (0.0-7.0); Hematocrit 25.5 % (36.0-46.0); Hemoglobin 8.9 g/dL (12.2-16.2); Lymphocytes % (auto) 20.2 % (10.0-50.0); Mean Corpuscular Hemoglobin 36.9 pg (28.0-32.0); Mean Corpuscular Hgb Conc. 34.9 g/dL (32.0-36.0); Mean Corpuscular Volume 105.7 fL (80.0-100.0); Monocytes % (auto) 9.8 % (0.0-12.0); Neutrophils % (auto) 67.3 % (37.0-80.0); Platelet Count (auto) 253 10^3/uL (140-450); Red Blood Cells 2.41 10^6/uL (4.0-5.20); Red Cell Distribution Width 14.9 % (11.8-14.3)
[2024-04-04 05:35] LABS: Chloride 108 mmol/L (98-107); Sodium 139 mmol/L (136-145)
[2024-04-04 05:36] LABS: Anion Gap 5 (5-15); Calcium 9.6 mg/dL (8.7-10.4); Carbon Dioxide 26 mmol/L (20-30)
[2024-04-04 05:41] LABS: BUN/Creatinine Ratio 27.8 (10.0-20.0); Blood Urea Nitrogen 37 mg/dL (9-23); Glucose 92 mg/dL (74-106)
[2024-04-04 05:45] LABS: INR 1.05 (0.9-1.15); Partial Thromboplastin Time 32.7 SEC (24.5-34.5); Prothrombin Time 11.3 sec (9.3-11.8)
[2024-04-04] MEDS ORDERED: MIDAZOLAM HCL 2MG/2ML 2ml VIAL (1mg/ml) ONE (10:19)
[2024-04-04] MEDS ORDERED: fentaNYL CITRATE 100 MCG/2 ML VL ONE (10:19)
[2024-04-04] MEDS ORDERED: KETAMINE 50mg/ML 1ml syringe ONE (10:19)
[2024-04-04] MEDS ORDERED: PROPOFOL 10 MG/ML 20 ML IV ONE (10:20)
[2024-04-04] MEDS ORDERED: LIDOCAINE 2% (LOCAL ANESTH.) PF 5ml SDV ONE (10:20)
[2024-04-04] MEDS: BUPIVACAINE HCL 50 ML ONE (10:23)
[2024-04-04] MEDS: ONDANSETRON HCL 4 MG/2 ML VIAL IV ONE (11:00)
[2024-04-04 14:32] LABS: Urine Bacteria None Seen /hpf (None Seen)
[2024-04-04 15:11] LABS: Urine Blood Negative /uL (Negative); Urine Clarity Clear (Clear); Urine Color Light-Yellow (Yellow); Urine Protein, UAD 1+ (Negative); Urine Specific Gravity 1.012 (1.001-1.035); Urine Urobilinogen Normal (Negative); Urine WBC <1 /hpf (0 - 5); Urine pH 5.5 (5.0-9.0)
[2024-04-05] VITALS (7 sets, daily range): BP systolic 109–135; BP diastolic 47–57; PULSE 63–74; RESP 17–100; TEMP 97.7–98.9; O2SAT 95–99
[2024-04-05] MEDS: MORPHINE SULFATE INJ 2 MG/ml SYRG IV PRN (01:26)
[2024-04-05 05:56] LABS: Eosinophils # (auto) 0.1 10 ^3/uL (0-0.8); Hemoglobin 8.2 g/dL (12.2-16.2); Lymphocytes # (auto) 0.7 10 ^3/uL (0.4-5.4); Monocytes # (auto) 0.6 10 ^3/uL (0-1.3); Neutrophils # (auto) 4.3 10 ^3/uL (1.6-8.6); White Blood Cell 5.7 10^3/uL (4.4-10.8)
[2024-04-05 06:00] LABS: Basophils # (auto) 0 10 ^3/uL (0-0.2); Basophils % (auto) 0.6 % (0.0-2.0); Eosinophils % (auto) 1.2 % (0.0-7.0); Hematocrit 23.6 % (36.0-46.0); Lymphocytes % (auto) 12.4 % (10.0-50.0); Mean Corpuscular Hemoglobin 37.1 pg (28.0-32.0); Mean Corpuscular Hgb Conc. 34.7 g/dL (32.0-36.0); Mean Corpuscular Volume 106.9 fL (80.0-100.0); Neutrophils % (auto) 75.8 % (37.0-80.0); Platelet Count (auto) 253 10^3/uL (140-450); Red Blood Cells 2.21 10^6/uL (4.0-5.20); Red Cell Distribution Width 15.2 % (11.8-14.3)
[2024-04-05 06:09] LABS: Anion Gap 5 (5-15); Carbon Dioxide 26 mmol/L (20-30); Chloride 105 mmol/L (98-107); Potassium 4.1 mmol/L (3.5-5.1); Sodium 136 mmol/L (136-145)
[2024-04-05 06:10] LABS: Calcium 9.7 mg/dL (8.7-10.4)
[2024-04-05 06:15] LABS: BUN/Creatinine Ratio 25.7 (10.0-20.0); Blood Urea Nitrogen 36 mg/dL (9-23); Glucose 123 mg/dL (74-106)
[2024-04-05] MEDS ORDERED: ERTAPENEM SOD INJ 1 GM in SODIUM CHL 0.9% 50 ML IV SCH (10:00)
[2024-04-05] MEDS: NIFEdipine ER 30 MG TAB PO SCH (10:51)
[2024-04-05] MEDS: ERTAPENEM SOD INJ 0.5 GM in SODIUM CHL 0.9% 50 ML IV SCH (10:53)
[2024-04-05] MEDS: DAPTOmycin 500 MG in SODIUM CHL 0.9% 50 ML IV SCH (16:50)
[2024-04-06] VITALS (8 sets, daily range): BP systolic 136–163; BP diastolic 54–75; PULSE 66–79; RESP 14–18; TEMP 97–98.4; O2SAT 93–100
[2024-04-06] MEDS: HYDROcodone-ACET 7.5/325MG TAB PO PRN (06:09)
[2024-04-06] MEDS ORDERED: PROPOFOL 10 MG/ML 20 ML IV ONE (12:17)
[2024-04-06] MEDS ORDERED: MIDAZOLAM HCL 2MG/2ML 2ml VIAL (1mg/ml) ONE (12:20)
[2024-04-06] MEDS: BUPIVACAINE HCL 50 ML ONE (12:26)
[2024-04-06] MEDS: VANCOMYCIN HCL 1000 MG VL ONE (12:26)
[2024-04-06] MEDS ORDERED: KETAMINE 50mg/ML 10ml Vial 0 ML ONE (12:33)
[2024-04-06] MEDS ORDERED: KETAMINE 50mg/ML 1ml syringe ONE (12:36)
[2024-04-06] MEDS ORDERED: ONDANSETRON HCL 4 MG/2 ML VIAL ONE (12:46)
[2024-04-06] MEDS ORDERED: LIDOCAINE 1% INJ PF 5ML AMP ONE (12:50)
[2024-04-06] MEDS: ONDANSETRON HCL 4 MG/2 ML VIAL IV ONE (13:00)
[2024-04-06] MEDS: Juven Orange Powder PACKET 27.5gm PO SCH (18:03)
[2024-04-06] MEDS: traZODone HCL 50 MG TAB PO SCH (22:36)
[2024-04-07 05:00] VITALS: BP 148/72; PULSE 77; RESP 18; TEMP 97.6; O2SAT 100
[2024-04-07 07:30] VITALS: PULSE 66; RESP 14; O2SAT 99
[2024-04-07 09:00] VITALS: BP 135/61; PULSE 66; RESP 18; TEMP 97.7; O2SAT 95
[2024-04-07] MEDS: LIDOCAINE 1% (LOCAL ANESTH.) PF 5ml SDV ID ONE (10:30)
[2024-04-07 12:13] LABS: Anion Gap 5 (5-15); Calcium 9.8 mg/dL (8.7-10.4); Carbon Dioxide 25 mmol/L (20-30); Chloride 105 mmol/L (98-107); Potassium 4.3 mmol/L (3.5-5.1); Sodium 135 mmol/L (136-145)
[2024-04-07 12:17] LABS: Glucose 128 mg/dL (74-106)
[2024-04-07 12:19] LABS: Blood Urea Nitrogen 28 mg/dL (9-23)
[2024-04-07 13:00] VITALS: BP_SYST 132; BP_SYST 135; BP_DIAS 59; BP_DIAS 61; PULSE 66; PULSE 69; RESP 18; TEMP 97.6; TEMP 97.7; O2SAT 95; O2SAT 96
[2024-04-07 17:00] VITALS: BP 146/61; PULSE 84; RESP 18; TEMP 98.6; O2SAT 96
[2024-04-07 21:00] VITALS: BP 140/53; PULSE 78; RESP 19; TEMP 99.2; O2SAT 97
[2024-04-07] MEDS: SODIUM CHLOR 0.9% PF (SALINE LOCK) 10ML VIAL/SYR IV SCH (22:00)
[2024-04-08] VITALS (7 sets, daily range): BP systolic 134–143; BP diastolic 54–74; PULSE 67–82; RESP 17–18; TEMP 97.6–98.4; O2SAT 97–100
[2024-04-08 07:06] LABS: Basophils # (auto) 0 10 ^3/uL (0-0.2); Eosinophils # (auto) 0.1 10 ^3/uL (0-0.8); Eosinophils % (auto) 2.2 % (0.0-7.0); Lymphocytes # (auto) 1.1 10 ^3/uL (0.4-5.4); Monocytes # (auto) 0.4 10 ^3/uL (0-1.3); Neutrophils # (auto) 3.2 10 ^3/uL (1.6-8.6); Nucleated Red Blood Cells % 0.1 %; Red Cell Distribution Width 15.1 % (11.8-14.3); White Blood Cell 4.8 10^3/uL (4.4-10.8)
[2024-04-08 07:10] LABS: Basophils % (auto) 0.8 % (0.0-2.0); Hematocrit 24.2 % (36.0-46.0); Hemoglobin 8.5 g/dL (12.2-16.2); Mean Corpuscular Hgb Conc. 35.2 g/dL (32.0-36.0); Mean Corpuscular Volume 104.9 fL (80.0-100.0); Monocytes % (auto) 7.8 % (0.0-12.0); Neutrophils % (auto) 66.2 % (37.0-80.0); Platelet Count (auto) 267 10^3/uL (140-450); Red Blood Cells 2.31 10^6/uL (4.0-5.20)
[2024-04-08 07:15] LABS: Chloride 104 mmol/L (98-107); Potassium 4.2 mmol/L (3.5-5.1); Sodium 138 mmol/L (136-145)
[2024-04-08 07:16] LABS: Anion Gap 6 (5-15); Carbon Dioxide 28 mmol/L (20-30)
[2024-04-08 07:17] LABS: Calcium 9.7 mg/dL (8.7-10.4)
[2024-04-08 07:22] LABS: BUN/Creatinine Ratio 26.1 (10.0-20.0); Blood Urea Nitrogen 35 mg/dL (9-23); Glucose 97 mg/dL (74-106)
[2024-04-09] VITALS (7 sets, daily range): BP systolic 106–140; BP diastolic 44–73; PULSE 65–99; RESP 16–18; TEMP 97.7–98.5; O2SAT 95–100
[2024-04-10] VITALS (7 sets, daily range): BP systolic 121–143; BP diastolic 59–74; PULSE 62–67; RESP 14–18; TEMP 36.6; O2SAT 97–99
[2024-04-10] MEDS: hydrALAZINE HCL 20 MG/ML VL IV ONE (07:53)
[2024-04-10] MEDS ORDERED: HYDR-4069 PO (10:13)
[2024-04-10] MEDS ORDERED: METF-370 PO (10:13)
[2024-04-11] MEDS ORDERED: DOCU-94 PO (10:19)
[2024-04-11] MEDS ORDERED: HYDR-4902 PO (10:19)
== END 2024-04-10 14:35 | disposition home health service (06) | DRG 239 ==
LOC: ER 14:02 → OVERFLOW 17:28 → ER 17:28 → WEST WING 18:40 → CENTRAL 04-06 18:56
PROVIDERS: ADMIT Nurse Practitioner; ATTEND Nurse Practitioner Acute Care
PROC: 0Y6N0Z9 Detachment at Left Foot, Partial 1st Ray, Open Approach (ICD-10-PCS; principal; 2024-04-04 10:13)
PROC: 0QBP0ZZ Excision of Left Metatarsal, Open Approach (ICD-10-PCS; 2024-04-06)
PROC: 02HV33Z Insertion of Infusion Device into Superior Vena Cava, Percutaneous Approach (ICD-10-PCS; 2024-04-07)
PROC: B548ZZA Ultrasonography of Superior Vena Cava, Guidance (ICD-10-PCS; 2024-04-07)
DX: E11.52 Type 2 diabetes mellitus with diabetic peripheral angiopathy with gangrene (principal); A48.0 Gas gangrene; N17.0 Acute kidney failure with tubular necrosis; E87.1 Hypo-osmolality and hyponatremia; M86.8X7 Other osteomyelitis, ankle and foot; I50.32 Chronic diastolic (congestive) heart failure; I13.0 Hypertensive heart and chronic kidney disease with heart failure and stage 1 through stage 4 chronic kidney disease, or unspecified chronic kidney disease; L03.116 Cellulitis of left lower limb; L03.115 Cellulitis of right lower limb; N18.4 Chronic kidney disease, stage 4 (severe); E11.69 Type 2 diabetes mellitus with other specified complication; E11.22 Type 2 diabetes mellitus with diabetic chronic kidney disease; I48.0 Paroxysmal atrial fibrillation; I27.20 Pulmonary hypertension, unspecified; E11.621 Type 2 diabetes mellitus with foot ulcer; E78.5 Hyperlipidemia, unspecified; D50.9 Iron deficiency anemia, unspecified; F03.90 Unspecified dementia, unspecified severity, without behavioral disturbance, psychotic disturbance, mood disturbance, and anxiety; I44.7 Left bundle-branch block, unspecified; I35.0 Nonrheumatic aortic (valve) stenosis; I25.10 Atherosclerotic heart disease of native coronary artery without angina pectoris; B95.62 Methicillin resistant Staphylococcus aureus infection as the cause of diseases classified elsewhere; Z85.42 Personal history of malignant neoplasm of other parts of uterus; I25.2 Old myocardial infarction; Z90.49 Acquired absence of other specified parts of digestive tract; Z90.710 Acquired absence of both cervix and uterus; Z98.61 Coronary angioplasty status; Z83.3 Family history of diabetes mellitus; Z82.49 Family history of ischemic heart disease and other diseases of the circulatory system; Z81.8 Family history of other mental and behavioral disorders; Z95.3 Presence of xenogenic heart valve; Z79.84 Long term (current) use of oral hypoglycemic drugs
CPT/HCPCS: 36415; 36569; 71045; 73700; 73718; 76775; 80048; 80053; 81001; 82306; 82570; 82607; 82728; 82962; 83540; 83550; 83735; 83935; 83970; 84100; 84156; 84300; 85025; 85610; 85652; 85730; 87070; 87075; 87077; 87186; 87205; 93005; 93306; 93925; 97163; G0378; J1335; J1815; J2001; J2250; J2405; J2704; J3490

== ENCOUNTER 2024-04-21 17:24 | Inpatient (IN) | payer OTHER ==
[~2024-04-21] VITALS: Ht 162.6 cm; Wt 63.2 kg
[~2024-04-21 17:24] MED LIST changes: -CEPH250C PO; +CEPH500C PO; +DOCU-94 PO; +HYDR-4902 PO; +METF-370 PO; -PANC3000 PO; -PYRI1TAB3 PO; -ZINC220C8 PO
[2024-04-21 18:15] LABS: Basophils # (auto) 0 10 ^3/uL (0-0.2); Basophils % (auto) 0.7 % (0.0-2.0); Eosinophils # (auto) 0.2 10 ^3/uL (0-0.8); Lymphocytes # (auto) 0.6 10 ^3/uL (0.4-5.4); Monocytes # (auto) 0.4 10 ^3/uL (0-1.3); Platelet Count (auto) 252 10^3/uL (140-450)
[2024-04-21 18:17] LABS: Eosinophils % (auto) 2.4 % (0.0-7.0); Hematocrit 25.3 % (36.0-46.0); Lymphocytes % (auto) 8.9 % (10.0-50.0); Mean Corpuscular Hemoglobin 37.4 pg (28.0-32.0); Mean Corpuscular Hgb Conc. 35.4 g/dL (32.0-36.0); Mean Corpuscular Volume 105.8 fL (80.0-100.0); Monocytes % (auto) 6.1 % (0.0-12.0); Neutrophils # (auto) 5.3 10 ^3/uL (1.6-8.6); Neutrophils % (auto) 81.9 % (37.0-80.0); Red Blood Cells 2.39 10^6/uL (4.0-5.20); White Blood Cell 6.4 10^3/uL (4.4-10.8)
[2024-04-21 18:22] LABS: Alanine Aminotransferase 14 U/L (7-40); Albumin 3.6 g/dL (3.2-4.8); Alkaline Phosphatase 63 U/L (46-116); Anion Gap 6 (5-15); Aspartate Aminotransferase 19 U/L (13-40); BUN/Creatinine Ratio 28.9 (10.0-20.0); Bilirubin, Total 0.4 mg/dL (0.2-1.0); Blood Urea Nitrogen 46 mg/dL (9-23); Calcium 9.7 mg/dL (8.7-10.4); Carbon Dioxide 26 mmol/L (20-30); Chloride 105 mmol/L (98-107); Glucose 137 mg/dL (74-106); Potassium 4.6 mmol/L (3.5-5.1); Sodium 137 mmol/L (136-145)
[2024-04-21] MEDS: ACETAMINOPHEN 325 MG TAB PO ONE (19:26)
[2024-04-21 22:46] LABS: Urine Bacteria None Seen /hpf (None Seen)
[2024-04-21 23:05] LABS: Urine Blood Negative /uL (Negative); Urine Clarity Clear (Clear); Urine Color Light-Yellow (Yellow); Urine Protein, UAD 1+ (Negative); Urine Specific Gravity 1.014 (1.001-1.035); Urine Urobilinogen Normal (Negative); Urine WBC <1 /hpf (0 - 5); Urine pH 5.5 (5.0-9.0)
[2024-04-21] MEDS: cefTRIAXone 1GM/50ML D5W 50 ML IV ONE (23:42)
[2024-04-22] VITALS (7 sets, daily range): BP systolic 129–152; BP diastolic 41–57; PULSE 60–66; RESP 14–20; TEMP 97.8–98.1; O2SAT 92–100
[2024-04-22] MEDS ORDERED: DOCUSATE SOD 100 MG CAP PO PRN
[2024-04-22] MEDS ORDERED: MORPHINE SULFATE INJ 2 MG/ml SYRG IV PRN
[2024-04-22] MEDS ORDERED: DEXTROSE (50%) 50ML SYRG IV PRN
[2024-04-22] MEDS ORDERED: ONDANSETRON HCL 4 MG/2 ML VIAL IV PRN
[2024-04-22] MEDS ORDERED: NITROGLYCERIN 0.4 MG SL TAB SL PRN
[2024-04-22] MEDS: HYDROcodone-ACET 5/325MG TAB PO PRN (04:07)
[2024-04-22 05:10] LABS: Eosinophils # (auto) 0.3 10 ^3/uL (0-0.8); Eosinophils % (auto) 4.6 % (0.0-7.0); Lymphocytes # (auto) 0.7 10 ^3/uL (0.4-5.4); Monocytes # (auto) 0.6 10 ^3/uL (0-1.3); White Blood Cell 6.3 10^3/uL (4.4-10.8)
[2024-04-22 05:13] LABS: Basophils # (auto) 0.1 10 ^3/uL (0-0.2); Basophils % (auto) 0.8 % (0.0-2.0); Hematocrit 24.8 % (36.0-46.0); Hemoglobin 8.6 g/dL (12.2-16.2); Lymphocytes % (auto) 11.6 % (10.0-50.0); Mean Corpuscular Hemoglobin 36.6 pg (28.0-32.0); Mean Corpuscular Hgb Conc. 34.6 g/dL (32.0-36.0); Mean Corpuscular Volume 105.9 fL (80.0-100.0); Monocytes % (auto) 9.2 % (0.0-12.0); Neutrophils # (auto) 4.6 10 ^3/uL (1.6-8.6); Neutrophils % (auto) 73.8 % (37.0-80.0); Platelet Count (auto) 222 10^3/uL (140-450); Red Blood Cells 2.34 10^6/uL (4.0-5.20); Red Cell Distribution Width 14.9 % (11.8-14.3)
[2024-04-22 05:24] LABS: Alanine Aminotransferase 13 U/L (7-40); Albumin 3.7 g/dL (3.2-4.8); Alkaline Phosphatase 58 U/L (46-116); Anion Gap 6 (5-15); Aspartate Aminotransferase 18 U/L (13-40); Bilirubin, Total 0.4 mg/dL (0.2-1.0); Blood Urea Nitrogen 44 mg/dL (9-23); Calcium 9.9 mg/dL (8.7-10.4); Carbon Dioxide 26 mmol/L (20-30); Chloride 105 mmol/L (98-107); Glucose 129 mg/dL (74-106); Potassium 4.3 mmol/L (3.5-5.1); Sodium 137 mmol/L (136-145)
[2024-04-22 05:25] LABS: Total Protein 6.2 g/dL (5.7-8.2)
[2024-04-22] MEDS: SODIUM CHLOR 0.9% PF (SALINE LOCK) 10ML VIAL/SYR IV SCH (06:23)
[2024-04-22] MEDS: InsuLIN REG 1unit/0.01ml Soln (100units/ml) SC SCH ×2 (06:24→21:38)
[2024-04-22] MEDS: ACCU-CHEK COMFORT CURVE STRIP VI SCH (06:25)
[2024-04-22 09:17] LABS: Rapid Influenza A Negative (Negative); Rapid Influenza B Negative (Negative)
[2024-04-22 09:20] LABS: COVID19 ANTIGEN SOFIA FIA NEGATIVE (NEGATIVE)
[2024-04-22 09:23] LABS: Rapid Strep A Screen-Throat Negative
[2024-04-22] MEDS: ASPirin 81 mg TAB PO SCH (10:08)
[2024-04-22] MEDS: FAMOTIDINE (10MG/ML) 2ML VL IV SCH (10:08)
[2024-04-22] MEDS: PANTOPRAZOLE 40 MG TAB PO ONE (11:00)
[2024-04-22] MEDS: ENOXAPARIN SOD 30 MG/0.3 ML SYRINGE SC ONE (11:00)
[2024-04-22] MEDS ORDERED: DAPTOmycin 6MG/KG PER PHARMACY 0 MG IV SCH (11:30)
[2024-04-22 11:43] LABS: INR 1.14 (0.9-1.15); Partial Thromboplastin Time 32.2 SEC (24.5-34.5)
[2024-04-22] MEDS: DAPTOmycin 500 MG in SODIUM CHL 0.9% 50 ML IV SCH (13:00)
[2024-04-22] MEDS: cefTRIAXone 1GM/50ML D5W 50 ML IV SCH (21:27)
[2024-04-22] MEDS: DONEPEZIL HYDROCHLORIDE 5 MG TAB PO SCH (21:28)
[2024-04-22] MEDS: traZODone HCL 50 MG TAB PO PRN (21:39)
[2024-04-23] VITALS (7 sets, daily range): BP systolic 129–151; BP diastolic 36–54; PULSE 57–73; RESP 16–20; TEMP 97.5–98.3; O2SAT 90–97
[2024-04-23] MEDS: PANTOPRAZOLE 40 MG TAB PO SCH (06:17)
[2024-04-23 07:29] LABS: Hemoglobin 8.3 g/dL (12.2-16.2); Red Cell Distribution Width 15.2 % (11.8-14.3)
[2024-04-23 07:34] LABS: Basophils # (auto) 0 10 ^3/uL (0-0.2); Basophils % (auto) 0.9 % (0.0-2.0); Eosinophils # (auto) 0.4 10 ^3/uL (0-0.8); Eosinophils % (auto) 7.6 % (0.0-7.0); Lymphocytes # (auto) 0.7 10 ^3/uL (0.4-5.4); Lymphocytes % (auto) 12.4 % (10.0-50.0); Mean Corpuscular Hemoglobin 36.9 pg (28.0-32.0); Mean Corpuscular Hgb Conc. 34.7 g/dL (32.0-36.0); Mean Corpuscular Volume 106.1 fL (80.0-100.0); Monocytes # (auto) 0.6 10 ^3/uL (0-1.3); Monocytes % (auto) 10.1 % (0.0-12.0); Neutrophils # (auto) 3.8 10 ^3/uL (1.6-8.6); Platelet Count (auto) 197 10^3/uL (140-450); Red Blood Cells 2.26 10^6/uL (4.0-5.20); White Blood Cell 5.5 10^3/uL (4.4-10.8)
[2024-04-23 08:00] LABS: Alanine Aminotransferase 11 U/L (7-40); Alkaline Phosphatase 54 U/L (46-116); Anion Gap 7 (5-15); BUN/Creatinine Ratio 24.3 (10.0-20.0); Blood Urea Nitrogen 36 mg/dL (9-23); Calcium 9.7 mg/dL (8.7-10.4); Carbon Dioxide 24 mmol/L (20-30); Chloride 105 mmol/L (98-107); Glucose 95 mg/dL (74-106); Magnesium 2.1 mg/dL (1.6-2.6); Potassium 4.5 mmol/L (3.5-5.1); Sodium 136 mmol/L (136-145)
[2024-04-23 08:01] LABS: Albumin 3.4 g/dL (3.2-4.8); Aspartate Aminotransferase 21 U/L (13-40); Bilirubin, Total 0.3 mg/dL (0.2-1.0); Total Protein 5.6 g/dL (5.7-8.2)
[2024-04-23] MEDS: ENOXAPARIN SOD 30 MG/0.3 ML SYRINGE SC SCH (09:25)
[2024-04-23] MEDS: ACETAMINOPHEN 325 MG TAB PO PRN (21:48)
[2024-04-24 05:00] VITALS: BP 143/55; PULSE 62; RESP 20; TEMP 98; O2SAT 96
[2024-04-24 08:00] VITALS: PULSE 77
[2024-04-24 08:51] VITALS: BP 157/83; PULSE 62; RESP 16; TEMP 98.2; O2SAT 94
[2024-04-24 13:35] VITALS: BP 130/68; PULSE 67; RESP 17; TEMP 98.7; O2SAT 93
[2024-04-24 17:04] VITALS: BP 163/66; PULSE 61; RESP 16; TEMP 98.2; O2SAT 96
== END 2024-04-24 17:20 | disposition home health service (06) | DRG 602 ==
LOC: EDBD 17:24 → ER 17:24 → EDUNIT# 17:24 → TELE 23:51 → TELE-CENTR 04-22 12:45
PROVIDERS: ADMIT Internal Medicine Geriatric Medicine; ATTEND Internal Medicine
DX: L03.031 Cellulitis of right toe (principal); G93.41 Metabolic encephalopathy; I13.0 Hypertensive heart and chronic kidney disease with heart failure and stage 1 through stage 4 chronic kidney disease, or unspecified chronic kidney disease; I50.30 Unspecified diastolic (congestive) heart failure; N17.9 Acute kidney failure, unspecified; E11.22 Type 2 diabetes mellitus with diabetic chronic kidney disease; J44.9 Chronic obstructive pulmonary disease, unspecified; N18.9 Chronic kidney disease, unspecified; I48.0 Paroxysmal atrial fibrillation; Z20.822 Contact with and (suspected) exposure to COVID-19; I25.10 Atherosclerotic heart disease of native coronary artery without angina pectoris; E11.42 Type 2 diabetes mellitus with diabetic polyneuropathy; D50.9 Iron deficiency anemia, unspecified; Z90.710 Acquired absence of both cervix and uterus; Z79.82 Long term (current) use of aspirin; Z79.899 Other long term (current) drug therapy; Z83.3 Family history of diabetes mellitus; Z81.8 Family history of other mental and behavioral disorders; Z82.49 Family history of ischemic heart disease and other diseases of the circulatory system; Z89.412 Acquired absence of left great toe; Z79.01 Long term (current) use of anticoagulants; Z93.0 Tracheostomy status; Z89.422 Acquired absence of other left toe(s); Z79.84 Long term (current) use of oral hypoglycemic drugs; F03.90 Unspecified dementia, unspecified severity, without behavioral disturbance, psychotic disturbance, mood disturbance, and anxiety; E78.5 Hyperlipidemia, unspecified
CPT/HCPCS: 36415; 70450; 70551; 71045; 80053; 81001; 82140; 82306; 82607; 82962; 83036; 83605; 83735; 83880; 84100; 84443; 84484; 85025; 85610; 85730; 86850; 86900; 86901; 87040; 87070; 87081; 87086; 87205; 87426; 87804; 87880; 93005; 99291; G0378; J1815; J3490

== ENCOUNTER 2024-05-03 23:50 | Inpatient (IN) | payer OTHER ==
[~2024-05-03] VITALS: Ht 165.1 cm; Wt 60.1 kg
[2024-05-04] VITALS (8 sets, daily range): BP systolic 107–133; BP diastolic 43–58; PULSE 76–103; RESP 16–21; TEMP 97.6–100.4; O2SAT 89–98
[2024-05-04 00:17] LABS: Basophils # (auto) 0 10 ^3/uL (0-0.2); Basophils % (auto) 0.3 % (0.0-2.0); Eosinophils # (auto) 0.8 10 ^3/uL (0-0.8); Eosinophils % (auto) 6.9 % (0.0-7.0); Hematocrit 24.4 % (36.0-46.0); Lymphocytes # (auto) 0.6 10 ^3/uL (0.4-5.4); Mean Corpuscular Hemoglobin 34.8 pg (28.0-32.0); Mean Corpuscular Volume 105.5 fL (80.0-100.0); Monocytes # (auto) 0.4 10 ^3/uL (0-1.3); Monocytes % (auto) 3.6 % (0.0-12.0); Neutrophils # (auto) 9.7 10 ^3/uL (1.6-8.6); Neutrophils % (auto) 84.2 % (37.0-80.0); Platelet Count (auto) 212 10^3/uL (140-450); Red Blood Cells 2.31 10^6/uL (4.0-5.20); Red Cell Distribution Width 15.1 % (11.8-14.3); White Blood Cell 11.5 10^3/uL (4.4-10.8)
[2024-05-04 00:31] LABS: Alanine Aminotransferase 14 U/L (7-40); Albumin 3.3 g/dL (3.2-4.8); Alkaline Phosphatase 53 U/L (46-116); Anion Gap 8 (5-15); Aspartate Aminotransferase 18 U/L (13-40); BUN/Creatinine Ratio 25.9 (10.0-20.0); Blood Urea Nitrogen 42 mg/dL (9-23); Calcium 9.7 mg/dL (8.7-10.4); Carbon Dioxide 23 mmol/L (20-31); Chloride 103 mmol/L (98-107); Glucose 242 mg/dL (74-106); Magnesium 1.9 mg/dL (1.6-2.6); Sodium 134 mmol/L (136-145)
[2024-05-04 00:32] LABS: Bilirubin, Total 0.3 mg/dL (0.2-1.0); Total Protein 5.7 g/dL (5.7-8.2)
[2024-05-04] MEDS: FUROSEMIDE 40 MG/4 ML VIAL IV ONE ×2 (00:39→21:18)
[2024-05-04] MEDS: PIPERACILLIN-TAZOB 3.375GM 100 ML IV ONE (01:03)
[2024-05-04] MEDS ORDERED: [UNRECOGNIZED DRUG - CODE] IV (03:08)
[2024-05-04 03:38] LABS: COVID19 ANTIGEN SOFIA FIA NEGATIVE (NEGATIVE); Rapid Influenza A Negative (Negative); Rapid Influenza B Negative (Negative)
[2024-05-04 04:23] LABS: Urine Bacteria None Seen /hpf (None Seen)
[2024-05-04 04:42] LABS: Urine Blood Negative /uL (Negative); Urine Clarity Clear (Clear); Urine Color Light-Yellow (Yellow); Urine Protein, UAD TRACE (Negative); Urine Specific Gravity 1.011 (1.001-1.035); Urine Urobilinogen Normal (Negative); Urine WBC <1 /hpf (0 - 5); Urine pH 5.5 (5.0-9.0)
[2024-05-04] MEDS ORDERED: VANCOMYCIN PER PHARMACY 0 MG IV SCH (04:45)
[2024-05-04] MEDS ORDERED: DEXTROSE (50%) 50ML SYRG IV PRN (04:45)
[2024-05-04] MEDS: CEFEPIME 2GM/50ML NS 50 ML IV ONE (05:06)
[2024-05-04 05:19] LABS: INR 1.14 (0.9-1.15); Partial Thromboplastin Time 31.7 SEC (24.5-34.5)
[2024-05-04 05:27] LABS: Folate (Folic Acid) 14.9 ng/mL (>5.38)
[2024-05-04] MEDS: VANCOMYCIN 1GM/250ML 200 ML IV ONE (05:43)
[2024-05-04] MEDS: ACCU-CHEK COMFORT CURVE STRIP VI SCH ×2 (08:00→14:29)
[2024-05-04] MEDS: DOCUSATE SOD 100 MG CAP PO SCH (10:00)
[2024-05-04] MEDS: InsuLIN REG 1unit/0.01ml Soln (100units/ml) SC SCH ×2 (10:41→14:29)
[2024-05-04] MEDS: LISINOPRIL 5 MG TAB PO SCH (10:46)
[2024-05-04] MEDS: ENOXAPARIN SOD 30 MG/0.3 ML SYRINGE SC SCH (10:46)
[2024-05-04] MEDS: ASPirin-EC 81 mg tab PO SCH (10:47)
[2024-05-04] MEDS: FUROSEMIDE 40 MG TAB PO SCH (10:47)
[2024-05-04] MEDS: SERTRALINE HCL 50 MG TAB PO SCH (10:47)
[2024-05-04] MEDS: METOPROLOL TARTRATE 25 MG TAB PO SCH (10:48)
[2024-05-04] MEDS: PANTOPRAZOLE 40 MG TAB PO SCH (10:48)
[2024-05-04] MEDS: NIFEdipine ER 30 MG TAB PO SCH (10:49)
[2024-05-04] MEDS: GABAPENTIN 300 MG CAP PO SCH (18:06)
[2024-05-04] MEDS: DONEPEZIL HYDROCHLORIDE 5 MG TAB PO SCH (21:18)
[2024-05-04] MEDS: DOXYCYCLINE 100 MG TAB/CAP PO SCH (21:19)
[2024-05-04] MEDS: ENOXAPARIN SOD 40 MG/0.4 ML SYRINGE SC ONE (22:29)
[2024-05-05] VITALS (26 sets, daily range): BP systolic 98–152; BP diastolic 43–87; PULSE 72–128; RESP 16–28; TEMP 98.1–99.3; O2SAT 91–98
[2024-05-05] MEDS: IPRATROPIUM BROM 0.5 MG/2.5ML INH SOL NEB SCH (01:03)
[2024-05-05] MEDS: ALBUTEROL SULF 2.5 MG/0.5ML(0.5%) NEB SOLN NEB SCH (01:03)
[2024-05-05 01:34] LABS: Base Excess 0.3 mmol/L (-2.0-3.0)
[2024-05-05] MEDS: FUROSEMIDE 40 MG/4 ML VIAL IV SCH (05:21)
[2024-05-05] MEDS: CEFEPIME 2GM/50ML NS 50 ML IV SCH (05:22)
[2024-05-05 05:37] LABS: Basophils # (auto) 0 10 ^3/uL (0-0.2); Lymphocytes # (auto) 0.4 10 ^3/uL (0.4-5.4); Monocytes # (auto) 0.4 10 ^3/uL (0-1.3)
[2024-05-05 05:42] LABS: Basophils % (auto) 0.1 % (0.0-2.0); Eosinophils # (auto) 0.7 10 ^3/uL (0-0.8); Eosinophils % (auto) 6.7 % (0.0-7.0); Hemoglobin 7.9 g/dL (12.2-16.2); Lymphocytes % (auto) 4.1 % (10.0-50.0); Mean Corpuscular Hemoglobin 35.6 pg (28.0-32.0); Mean Corpuscular Hgb Conc. 34.4 g/dL (32.0-36.0); Mean Corpuscular Volume 103.5 fL (80.0-100.0); Monocytes % (auto) 3.4 % (0.0-12.0); Neutrophils # (auto) 9.3 10 ^3/uL (1.6-8.6); Neutrophils % (auto) 85.7 % (37.0-80.0); Platelet Count (auto) 208 10^3/uL (140-450); Red Blood Cells 2.22 10^6/uL (4.0-5.20); White Blood Cell 10.8 10^3/uL (4.4-10.8)
[2024-05-05 05:59] LABS: Anion Gap 8 (5-15); Calcium 9.6 mg/dL (8.7-10.4); Carbon Dioxide 26 mmol/L (20-31); Chloride 101 mmol/L (98-107); Potassium 3.8 mmol/L (3.5-5.1); Sodium 135 mmol/L (136-145)
[2024-05-05 06:04] LABS: BUN/Creatinine Ratio 30.1 (10.0-20.0); Glucose 144 mg/dL (74-106)
[2024-05-05 06:05] LABS: Blood Urea Nitrogen 53 mg/dL (9-23)
[2024-05-05] MEDS: ACETAMINOPHEN 325 MG TAB PO PRN (06:17)
[2024-05-05] MEDS: MELATONIN 5 MG TAB PO ONE (07:09)
[2024-05-05] MEDS: ACCU-CHEK COMFORT CURVE STRIP VI SCH (08:20)
[2024-05-05] MEDS: ENOXAPARIN SOD 80 MG/0.8ML SYRINGE SC SCH ×2 (08:36→21:38)
[2024-05-05] MEDS: InsuLIN REG 1unit/0.01ml Soln (100units/ml) SC SCH (09:06)
[2024-05-05] MEDS: DAPTOmycin 400 MG in SODIUM CHL 0.9% 50 ML IV SCH (10:18)
[2024-05-05] MEDS: FUROSEMIDE 20 MG/2 ML VIAL IV STA (12:20)
[2024-05-05 12:51] LABS: Base Excess 1.5 mmol/L (-2.0-3.0)
[2024-05-05 16:28] LABS: Hematocrit 23.8 % (36.0-46.0); Hemoglobin 8.2 g/dL (12.2-16.2)
[2024-05-05] MEDS: FUROSEMIDE 20 MG/2 ML VIAL IV SCH (20:06)
[2024-05-05 21:11] LABS: Hematocrit 24.6 % (36.0-46.0); Hemoglobin 8.2 g/dL (12.2-16.2)
[2024-05-05] MEDS: MELATONIN 5 MG TAB PO SCH (21:37)
[2024-05-06] VITALS (35 sets, daily range): BP systolic 97–134; BP diastolic 35–146; PULSE 80–111; RESP 11–30; TEMP 98.1–100.2; O2SAT 90–99
[2024-05-06 05:04] LABS: Eosinophils # (auto) 0.9 10 ^3/uL (0-0.8); Lymphocytes # (auto) 0.5 10 ^3/uL (0.4-5.4); Neutrophils # (auto) 8.9 10 ^3/uL (1.6-8.6)
[2024-05-06 05:07] LABS: Basophils # (auto) 0.1 10 ^3/uL (0-0.2); Basophils % (auto) 0.7 % (0.0-2.0); Eosinophils % (auto) 8.4 % (0.0-7.0); Hematocrit 22.8 % (36.0-46.0); Hemoglobin 7.7 g/dL (12.2-16.2); Lymphocytes % (auto) 4.7 % (10.0-50.0); Mean Corpuscular Hemoglobin 35.3 pg (28.0-32.0); Mean Corpuscular Hgb Conc. 33.8 g/dL (32.0-36.0); Mean Corpuscular Volume 104.4 fL (80.0-100.0); Monocytes # (auto) 0.3 10 ^3/uL (0-1.3); Monocytes % (auto) 2.5 % (0.0-12.0); Neutrophils % (auto) 83.7 % (37.0-80.0); Platelet Count (auto) 243 10^3/uL (140-450); Red Blood Cells 2.18 10^6/uL (4.0-5.20); Red Cell Distribution Width 15.2 % (11.8-14.3); White Blood Cell 10.7 10^3/uL (4.4-10.8)
[2024-05-06 05:38] LABS: Alanine Aminotransferase 19 U/L (7-40); Albumin 3.2 g/dL (3.2-4.8); Alkaline Phosphatase 60 U/L (46-116); Anion Gap 10 (5-15); Aspartate Aminotransferase 32 U/L (13-40); BUN/Creatinine Ratio 30.5 (10.0-20.0); Calcium 9.7 mg/dL (8.7-10.4); Carbon Dioxide 24 mmol/L (20-31); Chloride 100 mmol/L (98-107); Glucose 196 mg/dL (74-106); Potassium 3.8 mmol/L (3.5-5.1); Sodium 134 mmol/L (136-145)
[2024-05-06 05:39] LABS: Bilirubin, Total 0.4 mg/dL (0.2-1.0); Total Protein 5.7 g/dL (5.7-8.2)
[2024-05-06 05:48] LABS: Blood Urea Nitrogen 64 mg/dL (9-23)
[2024-05-06 08:50] LABS: Base Excess -0.6 mmol/L (-2.0-3.0)
[2024-05-06] MEDS ORDERED: ENOXAPARIN SOD 80 MG/0.8ML SYRINGE SC SCH ×2 (10:00→22:00)
[2024-05-06 10:19] LABS: Hemoglobin 7.4 g/dL (12.2-16.2)
[2024-05-06 10:22] LABS: Hematocrit 22.3 % (36.0-46.0)
[2024-05-06] MEDS ORDERED: DEXTROSE (50%) 50ML SYRG IV PRN (10:45)
[2024-05-06] MEDS: ACCU-CHEK COMFORT CURVE STRIP VI SCH (12:30)
[2024-05-06] MEDS: InsuLIN REG 1unit/0.01ml Soln (100units/ml) SC SCH (12:30)
[2024-05-06] MEDS ORDERED: ACETAMINOPHEN 500 MG TAB PO PRN (15:30)
[2024-05-06] MEDS: IRON SUCROSE COMPLEX 100 ML IV SCH (16:19)
[2024-05-06] MEDS: ENOXAPARIN SOD 60 MG/0.6 ML SYRINGE SC SCH (21:03)
[2024-05-06] MEDS: methylPREDNISolone SOD SUCC 40 MG/ML VL IV SCH (21:04)
[2024-05-07] VITALS (49 sets, daily range): BP systolic 94–120; BP diastolic 36–54; PULSE 68–96; RESP 13–27; TEMP 97.2–97.7; O2SAT 87–100
[2024-05-07] MEDS: ACETAMINOPHEN 325 MG TAB PO PRN (05:58)
[2024-05-07 07:27] LABS: Hemoglobin 7.3 g/dL (12.2-16.2)
[2024-05-07 07:30] LABS: Hematocrit 21.5 % (36.0-46.0); Mean Corpuscular Hgb Conc. 33.9 g/dL (32.0-36.0); Mean Corpuscular Volume 106.2 fL (80.0-100.0); Platelet Count (auto) 197 10^3/uL (140-450); Red Blood Cells 2.03 10^6/uL (4.0-5.20); Red Cell Distribution Width 15.6 % (11.8-14.3)
[2024-05-07 07:35] LABS: Band Neutrophils % (manual) 0; Basophils % (manual) 0 (0.0-2.0); Blast Cells 0; Eosinophils % (manual) 0 (0-7); Metamyelocytes % 0; Myelocytes % 0; Promyelocytes % 0; Reactive Lymphocytes 0
[2024-05-07 07:44] LABS: Anion Gap 8 (5-15); Carbon Dioxide 24 mmol/L (20-31); Chloride 99 mmol/L (98-107); Potassium 4.5 mmol/L (3.5-5.1); Sodium 131 mmol/L (136-145)
[2024-05-07 07:45] LABS: Calcium 10.3 mg/dL (8.7-10.4)
[2024-05-07 07:50] LABS: BUN/Creatinine Ratio 29.3 (10.0-20.0); Blood Urea Nitrogen 63 mg/dL (9-23); Glucose 291 mg/dL (74-106)
[2024-05-07 08:46] LABS: Lymphocytes % (manual) 5 (10.0-50.0); Monocytes % (manual) 2 (0-12); Platelet Estimate Adequate
[2024-05-07] MEDS ORDERED: FUROSEMIDE 40 MG/4 ML VIAL IV ONE (11:15)
[2024-05-07] MEDS ORDERED: DEXTROSE (50%) 50ML SYRG IV PRN (11:15)
[2024-05-07] MEDS: ACCU-CHEK COMFORT CURVE STRIP VI SCH (11:42)
[2024-05-07] MEDS: InsuLIN REG 1unit/0.01ml Soln (100units/ml) SC SCH ×2 (11:48→21:53)
[2024-05-07] MEDS: FUROSEMIDE 20 MG/2 ML VIAL IV ONE ×2 (13:44→18:24)
[2024-05-07 19:31] LABS: Hematocrit 26.1 % (36.0-46.0); Hemoglobin 8.3 g/dL (12.2-16.2)
[2024-05-08] VITALS (41 sets, daily range): BP systolic 100–144; BP diastolic 42–64; PULSE 66–84; RESP 12–24; TEMP 97.6–97.9; O2SAT 87–100
[2024-05-08 02:12] LABS: Hematocrit 23.5 % (36.0-46.0); Hemoglobin 7.6 g/dL (12.2-16.2)
[2024-05-08] MEDS ORDERED: INSULIN LANTUS (GLARGINE) 1 /0.01ml (100units/ml) SC SCH (07:00)
[2024-05-08 08:53] LABS: Basophils # (auto) 0.1 10 ^3/uL (0-0.2); Basophils % (auto) 1.3 % (0.0-2.0); Eosinophils # (auto) 0.1 10 ^3/uL (0-0.8); Eosinophils % (auto) 1.1 % (0.0-7.0); Hematocrit 27.6 % (36.0-46.0); Lymphocytes # (auto) 0.3 10 ^3/uL (0.4-5.4); Lymphocytes % (auto) 2.9 % (10.0-50.0); Mean Corpuscular Hemoglobin 32.3 pg (28.0-32.0); Mean Corpuscular Hgb Conc. 32.6 g/dL (32.0-36.0); Mean Corpuscular Volume 99.2 fL (80.0-100.0); Monocytes # (auto) 0 10 ^3/uL (0-1.3); Monocytes % (auto) 0.3 % (0.0-12.0); Neutrophils # (auto) 11.1 10 ^3/uL (1.6-8.6); Neutrophils % (auto) 94.4 % (37.0-80.0); Platelet Count (auto) 247 10^3/uL (140-450); Red Blood Cells 2.78 10^6/uL (4.0-5.20); Red Cell Distribution Width 19.4 % (11.8-14.3); White Blood Cell 11.7 10^3/uL (4.4-10.8)
[2024-05-08 09:02] LABS: Chloride 101 mmol/L (98-107); Potassium 4.2 mmol/L (3.5-5.1); Sodium 134 mmol/L (136-145)
[2024-05-08 09:03] LABS: Anion Gap 9 (5-15); Carbon Dioxide 24 mmol/L (20-31)
[2024-05-08 09:04] LABS: Calcium 10.5 mg/dL (8.7-10.4)
[2024-05-08 09:08] LABS: Glucose 253 mg/dL (74-106)
[2024-05-08 09:09] LABS: BUN/Creatinine Ratio 35.5 (10.0-20.0); Magnesium 2.1 mg/dL (1.6-2.6)
[2024-05-08 09:12] LABS: Blood Urea Nitrogen 94 mg/dL (9-23)
[2024-05-08] MEDS: MEROPENEM 500MG IVPB 50 ML IV ONE (17:26)
[2024-05-08] MEDS: FUROSEMIDE 40 MG/4 ML VIAL IV SCH (18:22)
[2024-05-08] MEDS: LINEZOLID 600MG/300ML 300 ML IV SCH (18:23)
[2024-05-08] MEDS: ACETYLCYSTEINE 20%(200MG/ML) SOL 4ML NEB SCH (18:30)
[2024-05-08 19:48] LABS: Urine Amorphous Crystal FEW /hpf (None Seen); Urine Bacteria FEW /hpf (None Seen); Urine Blood Negative /uL (Negative); Urine Clarity Turbid (Clear); Urine Color Light-Yellow (Yellow); Urine Mucus FEW (None Seen); Urine Protein, UAD 1+ (Negative); Urine Specific Gravity 1.014 (1.001-1.035); Urine Urobilinogen Normal (Negative); Urine WBC 5 /hpf (0 - 5)
[2024-05-08] MEDS: MEROPENEM 500MG IVPB 50 ML IV SCH (21:54)
[2024-05-08] MEDS ORDERED: ATORVASTATIN 20 MG TAB PO SCH (22:00)
[2024-05-09] VITALS (53 sets, daily range): BP systolic 85–135; BP diastolic 33–70; PULSE 61–100; RESP 18–43; TEMP 97.4–100.5; O2SAT 86–96
[2024-05-09] MEDS: guaiFENesin-DM 100/10mg/5ml SYR PO PRN (00:44)
[2024-05-09 07:01] LABS: Alanine Aminotransferase 18 U/L (7-40); Alkaline Phosphatase 74 U/L (46-116); Anion Gap 10 (5-15); Aspartate Aminotransferase 19 U/L (13-40); BUN/Creatinine Ratio 37.4 (10.0-20.0); Bilirubin, Total 0.3 mg/dL (0.2-1.0); Calcium 10.6 mg/dL (8.7-10.4); Carbon Dioxide 24 mmol/L (20-31); Chloride 100 mmol/L (98-107); Glucose 203 mg/dL (74-106); Potassium 4.3 mmol/L (3.5-5.1); Sodium 134 mmol/L (136-145); Total Protein 5.6 g/dL (5.7-8.2)
[2024-05-09 07:04] LABS: Basophils # (auto) 0 10 ^3/uL (0-0.2); Basophils % (auto) 0.1 % (0.0-2.0); Eosinophils # (auto) 0.9 10 ^3/uL (0-0.8); Eosinophils % (auto) 8.9 % (0.0-7.0); Hematocrit 28.6 % (36.0-46.0); Hemoglobin 9.5 g/dL (12.2-16.2); Lymphocytes # (auto) 0.2 10 ^3/uL (0.4-5.4); Lymphocytes % (auto) 2.2 % (10.0-50.0); Mean Corpuscular Hemoglobin 33.4 pg (28.0-32.0); Mean Corpuscular Hgb Conc. 33.2 g/dL (32.0-36.0); Mean Corpuscular Volume 100.5 fL (80.0-100.0); Monocytes # (auto) 0.1 10 ^3/uL (0-1.3); Monocytes % (auto) 0.9 % (0.0-12.0); Neutrophils # (auto) 8.6 10 ^3/uL (1.6-8.6); Neutrophils % (auto) 87.9 % (37.0-80.0); Platelet Count (auto) 208 10^3/uL (140-450); Red Blood Cells 2.84 10^6/uL (4.0-5.20); Red Cell Distribution Width 19.6 % (11.8-14.3); White Blood Cell 9.8 10^3/uL (4.4-10.8)
[2024-05-09 07:14] LABS: Blood Urea Nitrogen 99 mg/dL (9-23)
[2024-05-09] MEDS: ACETAMINOPHEN 650 MG RECT SUPP PR PRN (08:53)
[2024-05-09] MEDS: PANTOPRAZOLE 40 MG/10 ML VIAL INJ IV SCH (09:29)
[2024-05-09] MEDS ORDERED: DAPTOmycin 400 MG in SODIUM CHL 0.9% 50 ML IV SCH (10:00)
[2024-05-09 10:04] LABS: Base Excess -0.1 mmol/L (-2.0-3.0)
[2024-05-09] MEDS: INSULIN LANTUS (GLARGINE) 1 /0.01ml (100units/ml) SC SCH (11:25)
[2024-05-09] MEDS: NOREPINEPHRINE 8 MG/250ML KIT 250 ML IV SCH (12:15)
[2024-05-09] MEDS: MORPHINE SULFATE INJ 2 MG/ml SYRG IV PRN (14:56)
[2024-05-10] VITALS (23 sets, daily range): BP systolic 94–130; BP diastolic 42–61; PULSE 85–127; RESP 13–34; TEMP 99–99.9; O2SAT 51–96
[2024-05-10] MEDS: LORazepam 2MG/ML-1ML VIAL IV PRN (08:24)
[2024-05-10] MEDS: MORPHINE SULFATE INJ 2 MG/ml SYRG IV PRN (10:04)
== END 2024-05-10 15:12 | DRG 871 ==
LOC: EDBD 23:50 → ER 23:50 → EDUNIT# 23:50 → TELE 05-04 04:44 → TELE-WESTW 05-04 11:11 → TELE-EAST 05-04 22:05 → DOU IN ICU 05-05 13:21
PROVIDERS: ADMIT Internal Medicine; ATTEND Internal Medicine
PROC: 5A0935A Assistance with Respiratory Ventilation, Less than 24 Consecutive Hours, High Flow/Velocity Cannula (ICD-10-PCS; 2024-05-06)
PROC: 30233N1 Transfusion of Nonautologous Red Blood Cells into Peripheral Vein, Percutaneous Approach (ICD-10-PCS; principal; 2024-05-07)
PROC: 5A0945A Assistance with Respiratory Ventilation, 24-96 Consecutive Hours, High Flow/Velocity Cannula (ICD-10-PCS; 2024-05-07)
PROC: 5A0935A Assistance with Respiratory Ventilation, Less than 24 Consecutive Hours, High Flow/Velocity Cannula (ICD-10-PCS; 2024-05-08)
PROC: 5A0935A Assistance with Respiratory Ventilation, Less than 24 Consecutive Hours, High Flow/Velocity Cannula (ICD-10-PCS; 2024-05-09)
PROC: 5A0935A Assistance with Respiratory Ventilation, Less than 24 Consecutive Hours, High Flow/Velocity Cannula (ICD-10-PCS; 2024-05-10)
DX: A41.50 Gram-negative sepsis, unspecified (principal); G92.8 Other toxic encephalopathy; I21.A1 Myocardial infarction type 2; J96.01 Acute respiratory failure with hypoxia; J15.69 Pneumonia due to other Gram-negative bacteria; N17.0 Acute kidney failure with tubular necrosis; I50.33 Acute on chronic diastolic (congestive) heart failure; J15.9 Unspecified bacterial pneumonia; J98.11 Atelectasis; I13.0 Hypertensive heart and chronic kidney disease with heart failure and stage 1 through stage 4 chronic kidney disease, or unspecified chronic kidney disease; J44.1 Chronic obstructive pulmonary disease with (acute) exacerbation; J44.0 Chronic obstructive pulmonary disease with (acute) lower respiratory infection; K92.1 Melena; M86.8X7 Other osteomyelitis, ankle and foot; D68.59 Other primary thrombophilia; E87.1 Hypo-osmolality and hyponatremia; L03.116 Cellulitis of left lower limb; Z20.822 Contact with and (suspected) exposure to COVID-19; Z66 Do not resuscitate; I27.20 Pulmonary hypertension, unspecified; I48.0 Paroxysmal atrial fibrillation; E11.22 Type 2 diabetes mellitus with diabetic chronic kidney disease; E11.65 Type 2 diabetes mellitus with hyperglycemia; E11.69 Type 2 diabetes mellitus with other specified complication; E78.5 Hyperlipidemia, unspecified; F03.A0 Unspecified dementia, mild, without behavioral disturbance, psychotic disturbance, mood disturbance, and anxiety; I25.10 Atherosclerotic heart disease of native coronary artery without angina pectoris; I35.0 Nonrheumatic aortic (valve) stenosis; M10.9 Gout, unspecified; S91.301A Unspecified open wound, right foot, initial encounter; S91.302A Unspecified open wound, left foot, initial encounter; D50.9 Iron deficiency anemia, unspecified; K21.9 Gastro-esophageal reflux disease without esophagitis; N18.32 Chronic kidney disease, stage 3b; D53.9 Nutritional anemia, unspecified; N28.1 Cyst of kidney, acquired; I25.2 Old myocardial infarction; Z89.432 Acquired absence of left foot; Z95.3 Presence of xenogenic heart valve; Z90.710 Acquired absence of both cervix and uterus; Z90.49 Acquired absence of other specified parts of digestive tract; Z82.49 Family history of ischemic heart disease and other diseases of the circulatory system; Z83.3 Family history of diabetes mellitus; Z98.61 Coronary angioplasty status; Z81.8 Family history of other mental and behavioral disorders; Z80.42 Family history of malignant neoplasm of prostate; Z51.5 Encounter for palliative care; Z85.42 Personal history of malignant neoplasm of other parts of uterus
CPT/HCPCS: 36415; 36600; 71045; 71250; 76775; 80048; 80053; 80202; 81001; 82550; 82607; 82746; 82805; 82962; 83605; 83735; 83880; 84100; 84443; 84484; 85007; 85014; 85018; 85025; 85027; 85379; 85610; 85730; 86850; 86900; 86901; 86920; 87040; 87070; 87077; 87081; 87086; 87186; 87205; 87426; 87804; 93005; 93970; 94640; G0378; J0692; J1756; J1815; J2185; J2470; J2543